=== PATIENT | male | born 1955 | race Caucasian/White ===

== ENCOUNTER 2025-01-18 14:04 | Inpatient (IN) | payer MEDICARE, SELFPAY ==
[2025-01-18 14:07] VITALS: BP 149/76; PULSE 104; RESP 18; TEMP 37.3; O2SAT 96; BMI 27.2
--- NOTE | 2025-01-18 14:30 | CT_ITS ---
PROCEDURE: BRAIN/HEAD WITHOUT CONTRAST 01/18/2025 REASON FOR EXAM: FALL/TRAUMA TECHNIQUE: Procedure Code: CTBR Modality: CT Procedure: BRAIN/HEAD WITHOUT CONTRAST Coronal and Sagittal reconstruction series were provided. One or more dose reduction techniques were used (e.g., Automated exposure control, adjustment of the mA and/or kV according to patient size, use of iterative reconstruction technique. RADIATION DOSE SUMMARY: CTDlvol: 44 mGy DLP: 796 mGycm FINDINGS: Moderate global parenchymal atrophy. Periventricular white matter hypodensity likely representing chronic microvascular ischemia. No evidence of acute hemorrhage or infarction. No extra-axial blood or fluid collections. Complete opacification of the bilateral maxillary sinuses right ethmoid and right frontal sinuses. Right mastoid effusion. The calvarial vault and skull base are intact. CT/Brain/Head without Contrast IMPRESSION: No acute intracranial abnormality. Right mastoid effusion. Right ostiomeatal complex pattern of obstruction. Reading Location: [id number]
--- NOTE | 2025-01-18 14:30 | RAD_ITS ---
PROCEDURE: HIP, UNI W/ PELVIS 2-3 VIEWS 01/18/2025 REASON FOR EXAM: PAIN/INJURY/FALL TECHNIQUE: Procedure Code: RAD Modality: DX Procedure: HIP, UNI W/ PELVIS 2-3 VIEWS Laterality: FINDINGS: Acute, comminuted left intertrochanteric fracture. Lesser trochanteric fracture fragment is mildly displaced. No evidence of dislocation. RAD/HIP, UNI W/ Pelvis 2-3 Views IMPRESSION: Intertrochanteric fracture. Reading Location: [id number]
--- NOTE | 2025-01-18 14:32 | EKG12_ITS ---
Test Reason : FALL Blood Pressure : */* mmHG Vent. Rate : 104 BPM Atrial Rate : 104 BPM P-R Int : 176 ms QRS Dur : 70 ms QT Int : 350 ms P-R-T Axes : 67 -59 -17 degrees QTcB Int : 460 ms Sinus tachycardia Left axis deviation Nonspecific T wave abnormality Abnormal ECG Confirmed by Sammy Dennis ([id number]), editor city [place] ([id number]) on 01/19/2025 9:49:31 AM Referred By: Confirmed By: Sammy Dennis
--- NOTE | 2025-01-18 14:33 | EDS_ITS ---
HPI HPI - Fall History of Present Illness Chief Complaint: Fall Informant: patient, family and EMS Narrative Narrative: 69-year-old male states he had let his dog out to urinate and was putting her back on leash when she took off and took his legs out causing him to fall onto his left hip. He laid there for couple of hours before someone became aware and called 911 to bring him to the ER. He denies any other pain or injury. He does not recall hitting his head or losing consciousness or have any other neck or back pain. He and family state that he does not see a doctor regularly, and therefore has no known medical issues or prescriptions, but family notes that he is an alcoholic and typically drinks from 8 AM-8 PM daily, and he has not had anything since last night with the current time being around 1400. He is not having any withdrawal symptoms right now, but family states this has occurred in the past. [facility] Medical History Amputation finger Home Medications ?Medication ?Instructions ?Recorded ?Last Taken ?Type NK 01/18/25 Unknown History Allergy/AdvReac Type Severity Reaction Status Date / Time latex Allergy Itching Verified 01/18/25 14:16 Penicillins Allergy Hives Verified 01/18/25 14:16 Social History (Updated 01/18/25 @ 14:[address] Shan Bianchi MD) Smoking Status: Heavy Smoker (>10/day) alcohol intake: current alcohol intake frequency: 3 or more drinks per day ROS ROS ED Constitutional Constitutional ED: Denies chills or fever(s) Eyes Eyes: Denies change in vision or diplopia ENT ENT ED: Denies rhinorrhea or sore throat Cardiovascular Cardiovascular: Denies chest pain or palpitations Respiratory/Chest Respiratory/Chest: Denies cough or dyspnea Gastrointestinal Gastrointestinal: Denies abdominal pain, diarrhea, nausea or vomiting Genitourinary Genitourinary ED: Denies dysuria or hematuria Musculoskeletal Musculoskeletal: Reports as per HPI and extremity pain; Denies back pain or neck pain Integumentary Denies abscess or rash Neurologic Neurologic: Denies headache(s), paresthesias or weakness Psychiatric Psychiatric: Denies anxiety or suicidal thoughts EXAM Physical Exam Const Vital Signs: 01/18/25 14:07 01/18/25 14:17 Temperature 99.1 F Temperature Source Axillary Pulse Rate 104 H Respiratory Rate 18 Respiratory Effort Normal Respiratory Depth Normal Respiratory Pattern Normal Blood Pressure 149/76 H Blood Pressure Mean 100 Pulse Ox 96 Oxygen Delivery Method Room Air Room Air Positive well nourished and well developed General Appearance ED: well developed and NAD HEENT Reports TM's clear and moist mucous membranes HEENT Narrative: No Loaiza sign, no raccoon eyes, no CSF otorhinorrhea, no hemotympanum. normocephalic and atraumatic Tympanic Membrane ED: Yes TM's clear Eyes PERRL and EOMs intact bilaterally Neck full ROM and supple Resp normal respiratory effort and clear to auscultation bilaterally Cardio regular rate, regular rhythm and no murmurs GI non-tender and non-distended Auscultation: normoactive bowel sounds Palpation: soft Back/Spine no CVA tenderness General Back: other FROM Extremity Extremity Narrative: Very tender left greater trochanter. Not able to move at all due to pain there in the left hip. Thighs and mild flexion, knees in flexion, left lower extremity internal rotation and the right lower extremity is along with her for comfort. Clubbing of fingernails, with black dirt beneath them all. General Extremety ED: Yes tenderness; Negative for edema or pulses abnormal General Extremity: Negative for edema or pulses abnormal Neuro oriented x3, CN's II-XII intact bilaterally and no sensory deficits noted Sensorium / Orientation: awake and alert Motor Exam: strength 5/5 throughout Psych mental status grossly normal and thought process normal Skin no rashes or lesions noted and no wounds MDM MDM MDM Narrative Medical decision making narrative: Very suspicious clinically for left hip fracture in his patient. Three-view x- ray of the left hip and pelvis confirm that showing what appears to be an intertrochanteric fracture involving avulsion of the lesser trochanter. Screening 1 view chest x-ray my interpretation shows hyperexpansion, but no acute thoracic abnormality. CT of the head was obtained in order to rule out intracranial injury, I reviewed the images and report which I agree with, negative for anything acute. Labs obtained, analgesics given, he will need to be admitted for surgical planning for this left hip fracture. He is a little hyponatremic but not severely so, slow normal saline started. Discussed with orthopedics and hospitalist. Patient did not develop withdrawal symptoms while in the hospital but I made hospital personnel aware that that could be a possibility. History & Record Review Discussion w/independent historian: EMS personnel, Patient and Family Lab Data Attestation: I reviewed the patient's lab results. Labs: Laboratory Results - last 24 hr 01/18/25 14:18 WBC 9.6 RBC 3.70 L Hgb 13.5 Hct 36.8 L MCV 99.5 H MCH 36.5 H MCHC 36.7 H RDW Std Deviation 44.0 H RDW Coeff of Robinson 12.1 Plt Count 172 MPV 10.1 Immature Gran % (Auto) 0.400 Neut % (Auto) 78.3 H Lymph % (Auto) 10.3 L [place] % (Auto) 10.7 H Eos % (Auto) 0.1 Baso % (Auto) 0.2 Absolute Neuts (auto) 7.5 Absolute Lymphs (auto) 0.98 Nucleated RBC % 0 PT 13.7 INR 1.0 APTT 28.7 Sodium 127 L Potassium 4.3 Chloride 93 L Carbon Dioxide 18.3 L Anion Gap 16 H BUN 9 Creatinine 0.65 L Estim Creat Clear Calc 94.13 Est GFR (MDRD) Non-Af 102 BUN/Creatinine Ratio 13.3 Glucose 97 Calcium 8.6 Total Bilirubin 1.14 AST 43 H ALT 34 Alkaline Phosphatase 51 Total Creatine Kinase 175 Total Protein 7.2 Albumin 3.7 Globulin 3.5 Albumin/Globulin Ratio 1.0 Radiography Diagnostic Testing: Clinical Impression(s) from Imaging Studies Brain CT 01/18/25 14:30 IMPRESSION: No acute intracranial abnormality. Right mastoid effusion. Right ostiomeatal complex pattern of obstruction. Reading Location: [address] Hip/Pelvis X-Ray 01/18/25 14:30 IMPRESSION: Intertrochanteric fracture. Reading Location: [address] Chest X-Ray 01/18/25 15:20 IMPRESSION: No Acute Findings. Reading Location: [address] Rhythm Strip Rhythm Strip: Sinus Tach Rate: 104 Ectopy: None EKG Initial EKG: Attestation: I personally reviewed and interpreted this EKG as follows: Interpretation: No Acute Injury Pattern, Sinus Tachycardia, LAFB and Non- Specific ST Changes Prior EKG tracings: not available for review Prior: No Prior Management Discussion w/another healthcare provider: Hospitalist and Mold Tooler (Jd Espinoza) Discharge Plan Dx/Rx/DC Orders Clinical Impression: Closed intertrochanteric fracture of left femur, Alcohol dependence, Fall from slip, trip, or stumble Disposition Disposition: Acute Care Hospital [facility]
[2025-01-18] MEDS: 0.9% Normal Saline (1000mL) 1,000 ML 125 ML IV ×2 (14:53→23:56)
[2025-01-18 15:08] LABS: Partial Thromboplast Time 28.7 Seconds (24.1-36.2); Prothrombin Time (Protime)PT. 13.7 SECONDS (11.7-14.9)
--- NOTE | 2025-01-18 15:20 | RAD_ITS ---
PROCEDURE: CHEST 1 VIEW 01/18/2025 REASON FOR EXAM: FALL TECHNIQUE: Frontal view of the chest. FINDINGS: The heart is normal in size. The lungs are clear. No acute osseous abnormalities. RAD/Chest 1 View IMPRESSION: No Acute Findings. Reading Location: [address]
[2025-01-18 15:27] LABS: Hematocrit 36.8 % (40-54); Hemoglobin 13.5 g/dL (13.0-16.5); Immature Granulocytes Count 0.040 X10^3/uL (0.0-0.0); Mean Corp Hgb Conc 36.7 g/dL (32-36); Mean Corpuscular Volume 99.5 fL (80-94); Mean Platelet Vol. 10.1 fl (6.2-12.0); NRBC Flagged by Analyzer 0 % (0-5); Platelet Count 172 K/mm3 (150-450); RBC Distribution Width CV 12.1 % (11.6-14.6); RBC Distribution Width SD 44.0 fl (35.1-43.9); Red Blood Count 3.70 M/mm3 (4.6-6.2); White Blood Count 9.6 K/mm3 (4.4-11.0)
[2025-01-18 15:47] LABS: CPK Total, Creatine Kinase 175 U/L (24-195)
[2025-01-18 15:50] VITALS: BP 149/76; PULSE 104; RESP 18; TEMP 37.3; O2SAT 96
[2025-01-18 15:50] LABS: AST(SGOT) 43 U/L (<=37); Alanine Aminotransfer ALT/SGPT 34 U/L (<=46); Albumin, Serum 3.7 g/dL (3.4-4.8); Alkaline Phosphatase 51 U/L (40-129); Anion Gap 16 (5-15); BUN 9 mg/dL (4-19); BUN/Creat Ratio 13.3 RATIO (10-20); Calcium,Total 8.6 mg/dL (7.6-11.0); Carbon Dioxide 18.3 mmol/L (21.0-32.0); Chloride 93 mmol/L (98-108); Estimated Creatinine Clearance 94.13 ml/min (50-250); Globulin 3.5 g/dL (2.2-4.2); Glucose 97 mg/dL (70-99); Potassium 4.3 mmol/L (3.3-5.1)
[2025-01-18 16:04] VITALS: BP 116/92
--- NOTE | 2025-01-18 16:06 | PCM.HP.STD ---
[facility] - General General Date of Admission: 01/18/25 Date of Service: 01/18/25 HPI Narrative SHAILA VALENTINO, is a 69-year-old male with alcohol use disorder presented to [facility] ED 01/18/2025 after a fall. He was letting his dog out and was putting her back on her leash when she took off and caused his legs to fall out and he fell onto his left hip. He laid there for couple hours before someone became aware. Did not hit head or lose consciousness and had no other pain. Family did note he drinks from 8 AM to 8 PM daily but has not had anything since last night. Patient denied any current withdrawal symptoms. In the ED temp 99.1, heart rate of 104 and a blood pressure 149/76, respiratory rate 18 and pulse ox 96% on room air. CBC with white count of 0.6 and hemoglobin 13.5, CMP with a sodium of 127, BUN of 9 and creatinine 0.65, CPK 175, CT of the brain no intracranial bleeding, chest x-ray no acute process, hip and pelvis x-ray demonstrated acute comminuted left intratrochanteric fracture with a lesser trochanteric fracture fragment mildly displaced. Ortho contacted and recommended medical admission with Ortho consult. Hospitalist contacted admission. Patient evaluated bedside. Reportedly last night he took the dog out and outs when he fell, laid there for couple hours before he was able to scoot himself back in the house, family helped him into bed but he refused to come to the ED, slept all night and this morning could not move because he hurts so much so he was brought to the ED. Reports he still having a lot of left hip pain, denies any other pain or anything else he hurt when he fell, does not take any medications and does not go to see doctors so unaware of any other health problems, does smoke at least 1 pack of cigarettes a day if not more and family reports he drinks every day from about 8 AM to 8 PM however he and family confirm that he drinks 7 drinks per day and they are 12 ounce 6% beers and usually does not drink more than that. Has not drink since sometime yesterday evening and denies any withdrawal symptoms at this time. When asked about p.o. intake patient only eats 1 meal a day and drinks almost no water. [facility] Medical History Amputation finger Home Medications ?Medication ?Instructions ?Recorded ?Last Taken ?Type NK 01/18/25 Unknown History Allergy/AdvReac Type Severity Reaction Status Date / Time latex Allergy Itching Verified 01/18/25 14:16 Penicillins Allergy Hives Verified 01/18/25 14:16 Social History (Updated 01/18/25 @ 14:[address] Shan Bianchi MD) Smoking Status: Heavy Smoker (>10/day) alcohol intake: current alcohol intake frequency: 3 or more drinks per day ROS ROS Narrative General: Denies fever/chills HENT: Denies headache, denies stuffy nose, denies sore throat EYES: Denies changes in vision Resp: Chronic cough that is unchanged, denies shortness of breath Cardiac: Denies chest pain GI: Denies abdominal pain, denies changes in bowel, denies nausea/vomiting : Denies changes in urination Extremity: Denies swelling MSK: Denies weakness, has left hip pain Neuro: Denies any numbness/tingling Heme: Denies any bleeding or bruising Skin: Denies rashes Psychiatric: No complaints voiced Vital Signs Vital Signs Vital Signs: 01/18/25 14:07 01/18/25 14:17 01/18/25 15:50 Temperature 99.1 F 99.1 F Temperature Source Axillary Pulse Rate 104 H 104 H Respiratory Rate 18 18 Respiratory Effort Normal Respiratory Depth Normal Respiratory Pattern Normal Blood Pressure 149/76 H 149/76 H Blood Pressure Mean 100 100 Pulse Ox 96 96 Oxygen Delivery Method Room Air Room Air Weight Weight: 88.496 kg Body Mass Index (BMI) 27.2 Physical Exam Narrative General: Alert, oriented, no apparent distress HEENT: Atraumatic, normocephalic, does have a twitch in his left eye Eyes: Anicteric, normal conjunctiva, extraocular movements grossly intact Neck: Supple Respiratory: Scattered wheezes, normal respiratory effort Cardiovascular: Regular rate and rhythm GI: Soft, nontender, nondistended Extremities: No edema Musculoskeletal: Laying on his right side, being careful not to move his left leg due to pain Neuro: No overt focal neurological deficits Skin: No rashes appreciated Psych: Cooperative Results Lab / Micro Data 01/18/25 14:18 01/18/25 14:18 Labs: Laboratory Results - last 24 hr 01/18/25 14:18: WBC 9.6, RBC 3.70 L, Hgb 13.5, Hct 36.8 L, MCV 99.5 H, MCH 36.5 H, MCHC 36.7 H, RDW Std Deviation 44.0 H, RDW Coeff of Robinson 12.1, Plt Count 172, MPV 10.1, Immature Gran % (Auto) 0.400, Neut % (Auto) 78.3 H, Lymph % (Auto) 10.3 L, [place] % (Auto) 10.7 H, Eos % (Auto) 0.1, Baso % (Auto) 0.2, Absolute Neuts (auto) 7.5, Absolute Lymphs (auto) 0.98, Nucleated RBC % 0, PT 13.7, INR 1.0, APTT 28.7, Sodium 127 L, Potassium 4.3, Chloride 93 L, Carbon Dioxide 18.3 L, Anion Gap 16 H, BUN 9, Creatinine 0.65 L, Estim Creat Clear Calc 94.13, Est GFR (MDRD) Non-Af 102, BUN/Creatinine Ratio 13.3, Glucose 97, Calcium 8.6, Total Bilirubin 1.14, AST 43 H, ALT 34, Alkaline Phosphatase 51, Total Creatine Kinase 175, Total Protein 7.2, Albumin 3.7, Globulin 3.5, Albumin/Globulin Ratio 1.0 Rhythm Strip Rhythm Strip: Sinus Tach Rate: 104 Ectopy: None Imaging Radiology Impression Brain CT 01/18/25 14:30 IMPRESSION: No acute intracranial abnormality. Right mastoid effusion. Right ostiomeatal complex pattern of obstruction. Reading Location: [id number] Hip/Pelvis X-Ray 01/18/25 14:30 IMPRESSION: Intertrochanteric fracture. Reading Location: [address] Chest X-Ray 01/18/25 15:20 IMPRESSION: No Acute Findings. Reading Location: [address] Assessment & Plan Assessment/Plan (1) Closed intertrochanteric fracture of left femur: (2) Alcohol dependence: (3) Hyponatremia: (4) Tobacco use: PLAN: Plan # Left intratrochanteric fracture -Imaging: acute comminuted left intratrochanteric fracture with a lesser trochanteric fracture fragment mildly displaced -Ortho consult -Pain control and scheduled bowel regimen -NPO at midnight in the event patient will be able to have surgery tomorrow, if not can continue diet -PT/OT -Case management and social work consults for DC planning # Alcohol abuse -Patient reportedly drinks every day from 8 AM to 8 PM however over the 12-hour period he only drinks 7 6% 12 ounce beers a day which was confirmed by family in the room -Has not drank in almost 24 hours and has no significant withdrawal symptoms at this time -Given the chronicity, consistence, and age do feel patient will have withdraw in some capacity - Do not think patient needs full high-dose phenobarb taper given the above and the concurrent pain medication use increasing risk of increased sedation/side effects but would benefit from a short-term scheduled dose, will give 32.5 every 6 hours x 24 hours and have CIWA with Ativan coverage, if patient has high scores can always consider doing full taper but again lower suspicion for that -Thiamine and folate # Hyponatremia -Unclear chronicity, sodium of 127 and is asymptomatic -Suspect this is due to patient's chronic alcohol intake with poor p.o. intake and some dehydration -Patient receiving IV fluids -Will check thyroid function -If sodium does not improve can consider further workup with serum osmolality and urine studies # Elevated anion gap - Patient with a gap of 16 and a bicarb of 18.3 - Patient does have ketones in his urine and has poor p.o. intake, suspect that this is elevated due to either starvation ketosis, alcoholic ketosis or combination of both - Will check lactic acid as well - Do not currently suspect any other underlying problems - Liberalize diet as tolerated - Receiving IV fluids #Tobacco use -Advise cessation -Nicotine replacement available if desired -i/s #DVT ppx: SCDs Amee Ramirez MD Charges/Coding Visit Charges Inpatient E&M: 80734 Init Hosp L2
[2025-01-18 16:20] LABS: Glucose, Dipstick Normal (Normal); Ketone-Dipstick 50 mg/dl (Negative); Leukocyte Esterase-Dipstick Negative /ul (Negative); Nitrite-Dipstick Negative (Negative); Occult Blood-Urine 10 /ul (Negative); Protein-Dipstick 15 mg/dl (Negative); Specific Gravity, Urine 1.020 (1.002-1.030); Urine Bilirubin Dipstick Negative (Negative)
[2025-01-18 16:21] LABS: Color, Urine Amber (Yellow); Mucous, Urine 0 SEEN /hpf (<or=2+)
[2025-01-18] MEDS: Nicotine (PBKC) 21 MG Patch TD (16:23)
[2025-01-18 16:28] LABS: Red Blood Cells-Urine 0-5 SEEN /hpf (0-5); Squamous Epithelial Cells - UA 0-5 SEEN /hpf (0-5)
--- NOTE | 2025-01-18 17:11 | PCM.HP.STD ---
HPI - General General Date of Admission: 01/18/25 HPI Narrative SHAILA VALENTINO, is a 69 M who presents with a left intertrochanteric hip fracture. The patient fell at home taking the dog out. Unable to ambulate. Here with his 2 daughters. Drinks heavily alcohol every day. Does not use ambulatory aids. No prior hip pain. [facility] Medical History Amputation finger Home Medications ?Medication ?Instructions ?Recorded ?Last Taken ?Type NK 01/18/25 Unknown History Allergy/AdvReac Type Severity Reaction Status Date / Time latex Allergy Itching Verified 01/18/25 14:16 Penicillins Allergy Hives Verified 01/18/25 14:16 Social History (Updated 01/18/25 @ 14:[address] Shan Bianchi MD) Smoking Status: Heavy Smoker (>10/day) alcohol intake: current alcohol intake frequency: 3 or more drinks per day Vital Signs Vital Signs Vital Signs: 01/18/25 14:07 01/18/25 14:17 01/18/25 15:50 Temperature 99.1 F 99.1 F Temperature Source Axillary Pulse Rate 104 H 104 H Respiratory Rate 18 18 Respiratory Effort Normal Respiratory Depth Normal Respiratory Pattern Normal Blood Pressure 149/76 H 149/76 H Blood Pressure Mean 100 100 Pulse Ox 96 96 Oxygen Delivery Method Room Air Room Air 01/18/25 16:04 Temperature Temperature Source Pulse Rate Respiratory Rate Respiratory Effort Respiratory Depth Respiratory Pattern Blood Pressure 116/92 H Blood Pressure Mean 100 Pulse Ox Oxygen Delivery Method Weight Weight: 195 lb 1.6 oz Body Mass Index (BMI) 27.2 Physical Exam Const alert, oriented x3 and no apparent distress General Appearance: cooperative Extremity Extremity Narrative: Shortened externally rotated left lower extremity. Closed. Thigh is soft. Neurovascular intact dorsiflexes and plantar flexes the foot wiggle the toes normal sensation throughout the foot good dorsalis pedis pulse. Results Lab / Micro Data 01/18/25 14:18 01/18/25 14:18 Labs: Laboratory Results - last 24 hr 01/18/25 14:18: WBC 9.6, RBC 3.70 L, Hgb 13.5, Hct 36.8 L, MCV 99.5 H, MCH 36.5 H, MCHC 36.7 H, RDW Std Deviation 44.0 H, RDW Coeff of Robinson 12.1, Plt Count 172, MPV 10.1, Immature Gran % (Auto) 0.400, Neut % (Auto) 78.3 H, Lymph % (Auto) 10.3 L, [place] % (Auto) 10.7 H, Eos % (Auto) 0.1, Baso % (Auto) 0.2, Absolute Neuts (auto) 7.5, Absolute Lymphs (auto) 0.98, Nucleated RBC % 0, PT 13.7, INR 1.0, APTT 28.7, Sodium 127 L, Potassium 4.3, Chloride 93 L, Carbon Dioxide 18.3 L, Anion Gap 16 H, BUN 9, Creatinine 0.65 L, Estim Creat Clear Calc 94.13, Est GFR (MDRD) Non-Af 102, BUN/Creatinine Ratio 13.3, Glucose 97, Calcium 8.6, Total Bilirubin 1.14, AST 43 H, ALT 34, Alkaline Phosphatase 51, Total Creatine Kinase 175, Total Protein 7.2, Albumin 3.7, Globulin 3.5, Albumin/Globulin Ratio 1.0 01/18/25 16:10: Lactic Acid 1.6 01/18/25 16:12: Urine Color Lynne, Urine Clarity Clear, Urine pH 6.0, Ur Specific [place] 1.020, Urine Protein 15 H, Urine Glucose (UA) Normal, Urine Ketones 50 H, Urine Occult Blood 10 H, Urine Nitrite Negative, Urine Bilirubin Negative, Urine Urobilinogen 1 H, Ur Leukocyte Esterase Negative, Urine RBC 0-5 SEEN, Urine WBC 0 SEEN, Ur Squamous Epith Cells 0-5 SEEN, Urine Bacteria 2+, Urine Mucus 0 SEEN Rhythm Strip Rhythm Strip: Sinus Tach Rate: 104 Ectopy: None Imaging Radiology Impression Brain CT 01/18/25 14:30 IMPRESSION: No acute intracranial abnormality. Right mastoid effusion. Right ostiomeatal complex pattern of obstruction. Reading Location: [address] Hip/Pelvis X-Ray 01/18/25 14:30 IMPRESSION: Intertrochanteric fracture. Reading Location: [address] Chest X-Ray 01/18/25 15:20 IMPRESSION: No Acute Findings. Reading Location: [address] I independently reviewed the imaging. Concur with radiologist report. Three-part intertrochanteric hip fracture with a lateral wall intact Assessment & Plan Assessment/Plan (1) Closed intertrochanteric fracture of left femur: PLAN: 69-year-old man with a left hip intertrochanteric hip fracture. I explained to the patient as well as the 2 daughters the diagnosis prognosis different treatment options including nonoperative management which is typically not indicated. Surgery is recommended here to stabilize the femur fracture. This would be with an intramedullary josh. I marked the left hip. Explained the pros and cons risks benefits of nonoperative versus surgical indications. Patient wished to go ahead with surgery in the form of left hip open reduction internal fixation. Will be admitted under the hospitalist service made n.p.o. at midnight to try to plan for the surgery within the next 48 hours possibly tomorrow or the next day. Nonweightbearing bedrest for now. Specific surgical risks include but not limited to infection pain stiffness bleeding delayed or nonunion especially due to his smoking habit and alcoholic encouraged him to quit or cut back as well as VTE and other risks such as pain stiffness bleeding damage to other structures and fracture. He understood wished to go ahead signed consent form as well as possible need for blood products. They understood no further questions or concerns. Pros and cons risks and benefits were discussed with the patient including but not limited to infection, pain, stiffness, bleeding, damage to surrounding structures, neurovascular injury, recurrence or retear, failure or wear of hardware or fixation, instability, fracture, deep vein thrombosis and pulmonary embolism, anesthetic risks, , patient dissatisfaction, need for further surgery and other risks. Patient understood and wished to proceed with surgery, and signed the informed consent documentation.
[2025-01-18 17:53] VITALS: BP 140/61; PULSE 93; RESP 16; TEMP 36.6; O2SAT 94
[2025-01-18 17:56] VITALS: BMI 22.6
[2025-01-18 18:12] VITALS: RESP 16
[2025-01-18 20:44] VITALS: BP 112/65; PULSE 98; RESP 20; TEMP 36.5; O2SAT 96
[2025-01-18] MEDS: Senna/Docusate Sodium 1 Tablet 2 TABLET PO (20:48)
[2025-01-19] VITALS (15 sets, daily range): BP systolic 111–141; BP diastolic 57–85; PULSE 78–107; RESP 16–20; TEMP 35.8–36.9; O2SAT 92–100; BMI 22.6
[2025-01-19 07:04] LABS: Hematocrit 32.0 % (40-54); Hemoglobin 11.4 g/dL (13.0-16.5); Immature Granulocytes Count 0.040 X10^3/uL (0.0-0.0); Mean Corp Hgb Conc 35.6 g/dL (32-36); Mean Corpuscular Volume 101.3 fL (80-94); Mean Platelet Vol. 9.0 fl (6.2-12.0); NRBC Flagged by Analyzer 0 % (0-5); Platelet Count 164 K/mm3 (150-450); RBC Distribution Width CV 12.2 % (11.6-14.6); RBC Distribution Width SD 45.4 fl (35.1-43.9); Red Blood Count 3.16 M/mm3 (4.6-6.2); White Blood Count 7.7 K/mm3 (4.4-11.0)
[2025-01-19] MEDS: 0.9% Normal Saline (1000mL) 1,000 ML 125 ML IV ×2 (07:16→15:58)
[2025-01-19 07:38] LABS: AST(SGOT) 32 U/L (<=37); Alanine Aminotransfer ALT/SGPT 24 U/L (<=46); Albumin, Serum 2.9 g/dL (3.4-4.8); Alkaline Phosphatase 39 U/L (40-129); Anion Gap 10 (5-15); BUN 11 mg/dL (4-19); BUN/Creat Ratio 16.7 RATIO (10-20); Bilirubin, Direct 0.21 mg/dL (0.00-0.30); Calcium,Total 7.9 mg/dL (7.6-11.0); Carbon Dioxide 19.8 mmol/L (21.0-32.0); Chloride 100 mmol/L (98-108); Estimated Creatinine Clearance 91.88 ml/min (50-250); Globulin 3.2 g/dL (2.2-4.2); Glucose 87 mg/dL (70-99); Potassium 3.8 mmol/L (3.3-5.1)
[2025-01-19 08:09] LABS: Partial Thromboplast Time 30.4 Seconds (24.1-36.2); Prothrombin Time (Protime)PT. 14.0 SECONDS (11.7-14.9)
[2025-01-19] MEDS: Nicotine (PBKC) 21 MG Patch TD (10:19)
--- NOTE | 2025-01-19 11:35 | PN.HOSP_ITS ---
Objective Data Objective Data Vital Signs: Vital Signs Temp Pulse Resp BP Pulse Ox O2 Del Method 98.3 F 83 18 111/63 94 Room Air 01/19/25 08:07 01/19/25 08:07 01/19/25 08:07 01/19/25 08:07 01/19/25 08:07 01/19/25 08:09 Oxygen Delivery Method Room Air Weight: 162 lb 0.636 oz Body Mass Index (BMI) 22.6 Intake & Output: Intake and Output for Last 24 Hours 01/17/25 01/18/25 01/19/25 23:59 23:59 23:59 Intake Total 1000 / 1200 1116.67 / 1116.67 Output Total 725 / 725 Balance 1000 / 850 391.67 / 391.67 Lab / Micro Data 01/19/25 06:25 01/19/25 06:25 Labs: Laboratory Results - last 24 hr 01/18/25 14:18: WBC 9.6, RBC 3.70 L, Hgb 13.5, Hct 36.8 L, MCV 99.5 H, MCH 36.5 H, MCHC 36.7 H, RDW Std Deviation 44.0 H, RDW Coeff of Robinson 12.1, Plt Count 172, MPV 10.1, Immature Gran % (Auto) 0.400, Neut % (Auto) 78.3 H, Lymph % (Auto) 10.3 L, [place] % (Auto) 10.7 H, Eos % (Auto) 0.1, Baso % (Auto) 0.2, Absolute Neuts (auto) 7.5, Absolute Lymphs (auto) 0.98, Nucleated RBC % 0, PT 13.7, INR 1.0, APTT 28.7, Sodium 127 L, Potassium 4.3, Chloride 93 L, Carbon Dioxide 18.3 L, Anion Gap 16 H, BUN 9, Creatinine 0.65 L, Estim Creat Clear Calc 94.13, Est GFR (MDRD) Non-Af 102, BUN/Creatinine Ratio 13.3, Glucose 97, Calcium 8.6, Total Bilirubin 1.14, AST 43 H, ALT 34, Alkaline Phosphatase 51, Total Creatine Kinase 175, Total Protein 7.2, Albumin 3.7, Globulin 3.5, Albumin/Globulin Ratio 1.0 01/18/25 16:10: Lactic Acid 1.6 01/18/25 16:12: Urine Color Lynne, Urine Clarity Clear, Urine pH 6.0, Ur Specific [place] 1.020, Urine Protein 15 H, Urine Glucose (UA) Normal, Urine Ketones 50 H, Urine Occult Blood 10 H, Urine Nitrite Negative, Urine Bilirubin Negative, Urine Urobilinogen 1 H, Ur Leukocyte Esterase Negative, Urine RBC 0-5 SEEN, Urine WBC 0 SEEN, Ur Squamous Epith Cells 0-5 SEEN, Urine Bacteria 2+, Urine Mucus 0 SEEN 01/19/25 06:25: WBC 7.7, RBC 3.16 L, Hgb 11.4 L, Hct 32.0 L, MCV 101.3 H, MCH 36.1 H, MCHC 35.6, RDW Std Deviation 45.4 H, RDW Coeff of Robinson 12.2, Plt Count 164, MPV 9.0, Immature Gran % (Auto) 0.500, Neut % (Auto) 62.9, Lymph % (Auto) 22.7, [place] % (Auto) 12.5 H, Eos % (Auto) 0.9, Baso % (Auto) 0.5, Absolute Neuts (auto) 4.8, Absolute Lymphs (auto) 1.74, Nucleated RBC % 0, PT 14.0, INR 1.1, APTT 30.4, Sodium 130 L, Potassium 3.8, Chloride 100, Carbon Dioxide 19.8 L, Anion Gap 10, BUN 11, Creatinine 0.64 L, Estim Creat Clear Calc 91.88, Est GFR (MDRD) Non-Af 103, BUN/Creatinine Ratio 16.7, Glucose 87, Calcium 7.9, Total Bilirubin 0.69, Direct Bilirubin 0.21, AST 32, ALT 24, Alkaline Phosphatase 39 L , Total Protein 6.1, Albumin 2.9 L, Globulin 3.2, Albumin/Globulin Ratio 0.9, T SH 5.600 H, Blood Type A POSITIVE, Antibody Screen NEGATIVE Radiography Diagnostic Testing: Radiology Impression Brain CT 01/18/25 14:30 IMPRESSION: No acute intracranial abnormality. Right mastoid effusion. Right ostiomeatal complex pattern of obstruction. Reading Location: [address] Hip/Pelvis X-Ray 01/18/25 14:30 IMPRESSION: Intertrochanteric fracture. Reading Location: [address] Chest X-Ray 01/18/25 15:20 IMPRESSION: No Acute Findings. Reading Location: [address] Rhythm Strip Rhythm Strip: Sinus Tach Rate: 104 Ectopy: None Physical Exam Narrative Seen and examined. Patient fell down on left side after the dog pulled him. He was walking the dog. Patient has bruises on the left upper extremity. Denies hitting head or loss of consciousness. Patient drinks 6-7 beers every day Physical exam General: Alert, Oriented x3, Cooperative HEENT: Atraumatic, PERRLA, EOMI, Normocephalic. Oral: No Gingival or Mucosal Lesions/ Ulcerations Neck: Supple, No JVD, Negative Carotid Bruits Chest wall/Lungs: Air entry diminished in bilateral lung bases. No crepitation/rhonchi Cardiovascular: Regular rate and rhythm, Normal S1,S2, No M/G/R Abdomen: Bowel Sounds Present, Soft, Non Tender, Non-Distended : No dysuria. No renal angle tenderness. No suprapubic tenderness. Extremities: No edema, Capillary Refill Less than 3 Seconds Skin: Multiple bruises in the left upper extremity. Chronic scarring also on the left upper extremity. Amputation of the finger. Musculoskeletal: Tenderness present over the left hip joint mainly and greater trochanter. ROM restricted and not attempted Neurological: Cranial nerves II-XII grossly intact, DTR 2+/4. No acute focal neurological deficit. Psych/Mental Status: Flat affect Assessment & Plan Assessment/Plan (1) Closed intertrochanteric fracture of left femur: (2) Alcohol dependence: (3) Hyponatremia: (4) Tobacco use: PLAN: Plan 69-year-old gentleman with history of chronic alcohol use is being admitted for management of fall resulting into left hip fracture # Acute debility due to left intratrochanteric fracture from fall -Imaging: acute comminuted left intratrochanteric fracture with a lesser trochanteric fracture fragment mildly displaced -Ortho consult -Pain control and scheduled bowel regimen -NPO at midnight in the event patient will be able to have surgery tomorrow, if not can continue diet -PT/OT -Case management and social work consults for DC planning Perioperative risk evaluation: Twelve-lead EKG reviewed. Sinus tachycardia at 104 beats minute. LAD. # Chronic alcohol use dependence and tolerance -Patient reportedly drinks every day from 8 AM to 8 PM however over the 12-hour period he only drinks 7 bottles of 6% 12 ounce beers a day which was confirmed by family in the room -Has not drank in almost 24 hours and has no significant withdrawal symptoms at this time Patient has developed tolerance to the above alcohol and is not withdrawing. Continue short-term scheduled dose, continue 32.5 every 6 hours x 24 hours and have CIWA with Ativan coverage, if patient has high scores can always consider doing full taper but again lower suspicion for that -Thiamine and folate # Hyponatremia -Unclear chronicity, sodium of 127 and is asymptomatic -Suspect this is due to patient's chronic alcohol intake with poor p.o. intake and some dehydration -Patient receiving IV fluids TSH 5.6, elevated 01/19: Serum sodium 130. K3.8. Bicarb 19.8. Anion gap 10. # Elevated anion gap - Patient with a gap of 16 and a bicarb of 18.3 - Patient does have ketones in his urine and has poor p.o. intake, suspect that this is elevated due to either starvation ketosis, alcoholic ketosis or combination of both Lactic acid 1.6. - Do not currently suspect any other underlying problems - Liberalize diet as tolerated - Receiving IV fluids #Tobacco use -Advise cessation -Nicotine replacement available if desired -i/s #DVT ppx: SCDs Laboratory Results 01/18/25 14:18: WBC 9.6, RBC 3.70 L, Hgb 13.5, Hct 36.8 L, MCV 99.5 H, MCH 36.5 H, MCHC 36.7 H, RDW Std Deviation 44.0 H, RDW Coeff of Robinson 12.1, Plt Count 172, MPV 10.1, Immature Gran % (Auto) 0.400, Neut % (Auto) 78.3 H, Lymph % (Auto) 10.3 L, [place] % (Auto) 10.7 H, Eos % (Auto) 0.1, Baso % (Auto) 0.2, Absolute Neuts (auto) 7.5, Absolute Lymphs (auto) 0.98, Nucleated RBC % 0, PT 13.7, INR 1.0, APTT 28.7, Sodium 127 L, Potassium 4.3, Chloride 93 L, Carbon Dioxide 18.3 L, Anion Gap 16 H, BUN 9, Creatinine 0.65 L, Estim Creat Clear Calc 94.13, Est GFR (MDRD) Non-Af 102, BUN/Creatinine Ratio 13.3, Glucose 97, Calcium 8.6, Total Bilirubin 1.14, AST 43 H, ALT 34, Alkaline Phosphatase 51, Total Creatine Kinase 175, Total Protein 7.2, Albumin 3.7, Globulin 3.5, Albumin/Globulin Ratio 1.0 01/18/25 16:10: Lactic Acid 1.6 01/18/25 16:12: Urine Color Lynne, Urine Clarity Clear, Urine pH 6.0, Ur Specific [place] 1.020, Urine Protein 15 H, Urine Glucose (UA) Normal, Urine Ketones 50 H, Urine Occult Blood 10 H, Urine Nitrite Negative, Urine Bilirubin Negative, Urine Urobilinogen 1 H, Ur Leukocyte Esterase Negative, Urine RBC 0-5 SEEN, Urine WBC 0 SEEN, Ur Squamous Epith Cells 0-5 SEEN, Urine Bacteria 2+, Urine Mucus 0 SEEN 01/19/25 06:25: WBC 7.7, RBC 3.16 L, Hgb 11.4 L, Hct 32.0 L, MCV 101.3 H, MCH 36.1 H, MCHC 35.6, RDW Std Deviation 45.4 H, RDW Coeff of [place] 12.2, Plt Count 164, MPV 9.0, Immature Gran % (Auto) 0.500, Neut % (Auto) 62.9, Lymph % (Auto) 22.7, [place] % (Auto) 12.5 H, Eos % (Auto) 0.9, Baso % (Auto) 0.5, Absolute Neuts (auto) 4.8, Absolute Lymphs (auto) 1.74, Nucleated RBC % 0, PT 14.0, INR 1.1, APTT 30.4, Sodium 130 L, Potassium 3.8, Chloride 100, Carbon Dioxide 19.8 L, Anion Gap 10, BUN 11, Creatinine 0.64 L, Estim Creat Clear Calc 91.88, Est GFR (MDRD) Non-Af 103, BUN/Creatinine Ratio 16.7, Glucose 87, Calcium 7.9, Total Bilirubin 0.69, Direct Bilirubin 0.21, AST 32, ALT 24, Alkaline Phosphatase 39 L, Total Protein 6.1, Albumin 2.9 L, Globulin 3.2, Albumin/Globulin Ratio 0.9, TSH 5.600 H, Blood Type A POSITIVE, Antibody Screen NEGATIVE Charges/Coding Visit Charges Inpatient E&M: 72463 Subs Hosp L2
--- NOTE | 2025-01-19 12:16 | PCM.PRE.AN2 ---
ASA Classification* ASA Classification ASA Classification: 3 (Smoker and alcoholic deconditioned) Assessment & Plan Anesthesia* Anesthesia Assessment Anesthesia Assessment: Discussed sedation and/or anesthesia options, risks, benefits, and alternatives with patient/parents/legal guardian/POA. Questions invited. The patient/parents/legal guardian/POA seems to understand and agrees to proceed with anesthesia plan. Reviewed the physical assessment, medical history, allergy history and patient home medications list prior to surgery/procedure/anesthetic and documented any changes. Performed airway and anesthesia risk assessments. Anesthesia Type Anesthesia Type: General History Source History Obtained from:: Patient and Chart Anesthesia Focused Assessment* Temperature: 98.3 F Pulse Rate: 83 Blood Pressure: 131/73 Respiratory Rate: 17 Pulse Ox: 94 Oxygen Delivery Method: Room Air Airway Assessment Mouth opens: >3 cm Mallampati Score: II Teeth Condition: Chipped/Broken (Poor dentition multiple missing teeth) Neck Range of motion (ROM): Limited ROM Labs Anesthesia Preop lab: CBC WBC 7.7 K/mm3 (4.4-11.0) 01/19/25 06:01/19/25 RBC 3.16 M/mm3 (4.6-6.2) L 01/19/25 06:25 01/19/25 Hgb 11.4 g/dL (13.0-16.5) L 01/19/25 06:25 01/19/25 Hct 32.0 % (40-54) L 01/19/25 06:25 01/19/25 Plt Count 164 K/mm3 (150-450) 01/19/25 06:25 01/19/25 CHEMISTRY Potassium 3.8 mmol/L (3.3-5.1) 01/19/25 06:25 01/19/25 Sodium 130 mmol/L (133-145) L 01/19/25 06:25 01/19/25 BUN 11 mg/dL (4-19) 01/19/25 06:25 01/19/25 Creatinine 0.64 mg/dL (0.70-1.20) L 01/19/25 06:25 01/19/25 Glucose 87 mg/dL (70-99) 01/19/25 06:25 01/19/25 TSH 5.600 uIU/mL (0.300-4.200) H 01/19/25 06:25 01/19/25 COAG PT 14.0 SECONDS (11.7-14.9) 01/19/25 06:25 01/19/25 Pre-Assessment Diagnosis/Proposed Procedure Planned Operative Procedure(s): Left hip open reduction internal fixation Anesthesia History 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 When Was Last Pacemaker Check QUESTION #4 FULL TEXT: You/Your Family Experience fever (hyperthermia) with Anesthesia Last Oral Intake Last Oral intake: Last Oral Intake NPO since 06:00 01/19/25 11:36 Meds taken in AM with sips of Yes 01/19/25 11:36 water? 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 Female HX of Motion Sickness HX of N/V After Surgery Non-Smoker Duration of Surgery greater than 60 minutes Number of Risk Factors PONV Score Height & Weight Height & Weight: Anesthesia: Height & Weight Height 5 ft 11 in 01/19/25 11:36 Weight: 73.5 kg 01/19/25 11:36 Body Mass Index (BMI) 22.6 01/19/25 11:36 Respiratory Assessment Respiratory Assessment - men's swim coach: Respiratory Tract Infection Hx - men's swim coach Hx Respiratory Tract Infection No 01/19/25 11:42 STOP Sleep Apnea STOP Sleep Apnea - men's swim coach: STOP Sleep Apnea - men's swim coach Hx Hypertension No 01/18/25 17:56 Hx Sleep Apnea No 01/18/25 17:56 CPAP BIPAP Do you snore loudly (louder No 01/18/25 17:56 than talking or can be heard Do you often feel tired/ No 01/18/25 17:56 fatigued/ sleepy during daytime? Has anyone observed you stop No 01/18/25 17:56 breathing during sleep? STOP Results Negative 01/18/25 17:56 QUESTION #5 FULL TEXT : Do you snore loudly (louder than talking or can be heard through closed doors)? 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 Specify any problems Hx of Preganancy in last 3 N/A 01/18/25 17:56 Months Nurse Filling Out Transfusion JDIAL 01/18/25 17:56 & Questions: Date: 01/18/25 01/18/25 17:56 Time: 18:02 01/18/25 17:56 Patient unable to answer at this time (ie. confused, unrespo /Reproduction History /Reproductive History - men's swim coach: /Reproductive Hx- men's swim coach Hx Now Gestational Age (in weeks): EDC: Hx Hx Para Hx Section SAB Active Medications Active Medications: Current Medications Generic Name Dose Route Start Last Admin Trade Name Freq PRN Reason Stop Dose Admin Acetaminophen 1,000 mg 01/18/25 22:00 01/19/25 05:57 Acetaminophen 500 Mg Tablet PO 1,000 mg Q8 KIERRA Administration Albuterol Sulfate 2.5 mg 01/18/25 17:43 Albuterol 2.5 Mg/3 Ml Vial.Neb. INHALATION Q2H PRN PRN SOB &/OR WHEEZING Dicyclomine HCl 20 mg 01/18/25 17:43 Dicyclomine 10 Mg Capsule PO Q6H PRN PRN abdominal discomfort Folic Acid 1 mg 01/19/25 08:00 01/19/25 08:13 Folic Acid 1 Mg Tablet PO Not Given BREAKFAST KIERRA Gabapentin 100 mg 01/18/25 17:43 Gabapentin 100 Mg Capsule PO Q8H PRN PRN moderate to severe anxiety Sodium Chloride 1,000 mls @ 125 mls/hr 01/18/25 14:30 01/19/25 07:16 IV 125 mls/hr .Q8H KIERRA Administration Cefazolin Sodium 2 gm/ Sodium 110 mls @ 200 mls/hr 01/19/25 12:09 Chloride IV 01/19/25 12:41 INTRAOP ONE Ketorolac Tromethamine 15 mg 01/18/25 17:43 Ketorolac 15 Mg/Ml Vial IV 01/23/25 17:43 Q6H PRN PRN Pain Score 1-10 Loperamide HCl 2 mg 01/18/25 17:43 Loperamide 2 Mg Capsule PO Q4H PRN PRN DIARRHEA/LOOSE STOOLS Lorazepam 0.5 mg 01/18/25 17:43 Lorazepam 0.5 Mg Tablet PO UD PRN CIWA score >/=12 Protocol Melatonin 10 mg 01/18/25 17:43 Melatonin 10 Mg Tablet PO QHS PRN PRN INSOMNIA Morphine Sulfate 2 - 4 mg 01/18/25 17:43 Morphine 2 Mg/Ml Syringe IV Q3H PRN PRN Pain Score 6-10 Nicotine 21 mg 01/19/25 10:00 01/19/25 10:19 Nicotine (Pbkc) 21 Mg Patch TD 21 mg DAILY KIERRA Administration Ondansetron HCl 4 mg 01/18/25 17:43 Ondansetron 4 Mg/2 Ml Vial IV Q8H PRN PRN NAUSEA/VOMITING Ondansetron HCl 8 mg 01/18/25 17:43 Ondansetron 8 Mg Tablet PO Q8H PRN PRN NAUSEA Oxycodone HCl 5 mg 01/18/25 17:43 01/18/25 23:55 Oxycodone 5 Mg Tablet PO 5 mg Q4H PRN PRN Administration Pain Score 4-10 Phenobarbital 32.4 mg 01/18/25 18:00 01/19/25 05:57 Phenobarbital 16.2 Mg Tablet PO 01/19/25 18:01 32.4 mg Q6H KIERRA Administration Senna/Docusate Sodium 2 tablet 01/18/25 22:00 01/19/25 10:19 Senna/Docusate Sodium 1 Tablet PO Not Given BID KIERRA Sodium Chloride 10 - 40 ml 01/18/25 18:33 0.9% Saline Lock 10 Ml Syringe IV UD PRN SALINE FLUSH Thiamine HCl 100 mg 01/19/25 08:00 01/19/25 08:13 Thiamine Hydrochloride 100 Mg Tablet PO Not Given DAILYCM KIERRA Trazodone HCl 50 mg 01/18/25 17:43 Trazodone 50 Mg Tablet PO QHS PRN PRN INSOMNIA PFSH Medical History Amputation finger Home Medications ?Medication ?Instructions ?Recorded ?Last Taken ?Type NK 01/18/25 Unknown History Allergy/AdvReac Type Severity Reaction Status Date / Time latex Allergy Itching Verified 01/18/25 14:16 Penicillins Allergy Hives Verified 01/18/25 14:16 Social History Smoking Status: Heavy Smoker (>10/day) alcohol intake: current alcohol intake frequency: 3 or more drinks per day Review of Systems (Anesthesia) ROS Narrative System reviewed and no additional complaints, except as documented.
--- NOTE | 2025-01-19 12:31 | PN.ORTHO_ITS ---
Subjective Subjective PAD 1 L hip fracture. fine overnight. no concerns. Objective Data Objective Data Vital Signs: Vital Signs Temp Pulse Resp BP Pulse Ox O2 Del Method 98.3 F 83 17 131/73 H 94 Room Air 01/19/25 12:18 01/19/25 12:18 01/19/25 12:18 01/19/25 12:18 01/19/25 12:18 01/19/25 12:18 Oxygen Delivery Method Room Air Weight: 162 lb 0.636 oz Body Mass Index (BMI) 22.6 Intake & Output: Intake and Output for Last 24 Hours 01/17/25 01/18/25 01/19/25 23:59 23:59 23:59 Intake Total 1000 / 1200 1116.67 / 1116.67 Output Total 725 / 725 Balance 1000 / 850 391.67 / 391.67 Lab / Micro Data 01/19/25 06:25 01/19/25 06:25 Labs: Laboratory Results - last 24 hr 01/18/25 14:18: WBC 9.6, RBC 3.70 L, Hgb 13.5, Hct 36.8 L, MCV 99.5 H, MCH 36.5 H, MCHC 36.7 H, RDW Std Deviation 44.0 H, RDW Coeff of [place] 12.1, Plt Count 172, MPV 10.1, Immature Gran % (Auto) 0.400, Neut % (Auto) 78.3 H, Lymph % (Auto) 10.3 L, [place] % (Auto) 10.7 H, Eos % (Auto) 0.1, Baso % (Auto) 0.2, Absolute Neuts (auto) 7.5, Absolute Lymphs (auto) 0.98, Nucleated RBC % 0, PT 13.7, INR 1.0, APTT 28.7, Sodium 127 L, Potassium 4.3, Chloride 93 L, Carbon Dioxide 18.3 L, Anion Gap 16 H, BUN 9, Creatinine 0.65 L, Estim Creat Clear Calc 94.13, Est GFR (MDRD) Non-Af 102, BUN/Creatinine Ratio 13.3, Glucose 97, Calcium 8.6, Total Bilirubin 1.14, AST 43 H, ALT 34, Alkaline Phosphatase 51, Total Creatine Kinase 175, Total Protein 7.2, Albumin 3.7, Globulin 3.5, Albumin/Globulin Ratio 1.0 01/18/25 16:10: Lactic Acid 1.6 01/18/25 16:12: Urine Color Lynne, Urine Clarity Clear, Urine pH 6.0, Ur Specific [place] 1.020, Urine Protein 15 H, Urine Glucose (UA) Normal, Urine Ketones 50 H, Urine Occult Blood 10 H, Urine Nitrite Negative, Urine Bilirubin Negative, Urine Urobilinogen 1 H, Ur Leukocyte Esterase Negative, Urine RBC 0-5 SEEN, Urine WBC 0 SEEN, Ur Squamous Epith Cells 0-5 SEEN, Urine Bacteria 2+, Urine Mucus 0 SEEN 01/19/25 06:25: WBC 7.7, RBC 3.16 L, Hgb 11.4 L, Hct 32.0 L, MCV 101.3 H, MCH 36.1 H, MCHC 35.6, RDW Std Deviation 45.4 H, RDW Coeff of [place] 12.2, Plt Count 164, MPV 9.0, Immature Gran % (Auto) 0.500, Neut % (Auto) 62.9, Lymph % (Auto) 22.7, [place] % (Auto) 12.5 H, Eos % (Auto) 0.9, Baso % (Auto) 0.5, Absolute Neuts (auto) 4.8, Absolute Lymphs (auto) 1.74, Nucleated RBC % 0, PT 14.0, INR 1.1, APTT 30.4, Sodium 130 L, Potassium 3.8, Chloride 100, Carbon Dioxide 19.8 L, Anion Gap 10, BUN 11, Creatinine 0.64 L, Estim Creat Clear Calc 91.88, Est GFR (MDRD) Non-Af 103, BUN/Creatinine Ratio 16.7, Glucose 87, Calcium 7.9, Total Bilirubin 0.69, Direct Bilirubin 0.21, AST 32, ALT 24, Alkaline Phosphatase 39 L , Total Protein 6.1, Albumin 2.9 L, Globulin 3.2, Albumin/Globulin Ratio 0.9, T SH 5.600 H, Blood Type A POSITIVE, Antibody Screen NEGATIVE Radiography Diagnostic Testing: Radiology Impression Brain CT 01/18/25 14:30 IMPRESSION: No acute intracranial abnormality. Right mastoid effusion. Right ostiomeatal complex pattern of obstruction. Reading Location: [id number] Hip/Pelvis X-Ray 01/18/25 14:30 IMPRESSION: Intertrochanteric fracture. Reading Location: [address] Chest X-Ray 01/18/25 15:20 IMPRESSION: No Acute Findings. Reading Location: [address] Rhythm Strip Rhythm Strip: Sinus Tach Rate: 104 Ectopy: None Physical Exam Const alert and no apparent distress General Appearance: cooperative Assessment & Plan Assessment/Plan (1) Closed intertrochanteric fracture of left femur: PLAN: 69 yr M with L IT hip fracture. Plan for IM josh. No concerns. OK to proceed.
--- NOTE | 2025-01-19 12:38 | NURSING ---
brought down to surgery via bed at 1200pm today.
[2025-01-19] MEDS: Midazolam 2 MG/2 ML Syringe IV (12:53)
[2025-01-19] MEDS: Lidocaine 1% (5 ml sdv) 5 ML Vial IV (12:58)
[2025-01-19] MEDS: Cefazolin 1 GM/5 ML Vial 2 GM IV (13:05)
--- NOTE | 2025-01-19 13:05 | RAD_ITS ---
PROCEDURE: HIP MIN 2 VIEWS (PORTABLE); O.R. FLUORO FOR C-ARM 01/19/2025 REASON FOR EXAM: LEFT HIP FX, fluoroscopy and intraoperative fixation TECHNIQUE: Procedure Code: RADH_P; RADORFL_C_ARM Modality: DX Procedure: HIP MIN 2 VIEWS (PORTABLE); O.R. FLUORO FOR C-ARM Laterality: Left. Fluoroscopy time: 171 seconds. Dose: 32.21 mGy. COMPARISON: Left hip and pelvis series of 01/18/2025. RAD/Hip Min 2 Views (Portable) IMPRESSION: Intraoperative fluoroscopy was performed for fracture fixation of the proximal left femoral fracture site, including left femoral intramedullary nail with proximal distal interlocking screws. 5 fluoroscopic i mages are presented. Reading Location: [place] [id number]
--- NOTE | 2025-01-19 13:05 | RAD_ITS ---
PROCEDURE: HIP MIN 2 VIEWS (PORTABLE); O.R. FLUORO FOR C-ARM 01/19/2025 REASON FOR EXAM: LEFT HIP FX, fluoroscopy and intraoperative fixation TECHNIQUE: Procedure Code: RADH_P; RADORFL_C_ARM Modality: DX Procedure: HIP MIN 2 VIEWS (PORTABLE); O.R. FLUORO FOR C-ARM Laterality: Left. Fluoroscopy time: 171 seconds. Dose: 32.21 mGy. COMPARISON: Left hip and pelvis series of 01/18/2025. RAD/O.R. Fluoro for C-Arm IMPRESSION: Intraoperative fluoroscopy was performed for fracture fixation of the proximal left femoral fracture site, including left femoral intramedullary nail with proximal distal interlocking screws. 5 fluoroscopic i mages are presented. Reading Location: [place] [id number]
[2025-01-19] MEDS: Lactated Ringers 2,000 ML 2000 ML IV (13:54)
[2025-01-19] MEDS: fentaNYL 100 MCG/2 ML Ampul 200 MCG IV (14:03)
--- NOTE | 2025-01-19 14:25 | OP.PCM_ITS ---
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 Product Tester: castillo Tasks completed by first calender worker: Retracting Additional assistant librarian?: No Type of Anesthesia: General and Local RN Documented Start/Stop Times: Operation Date: 01/19/25 13:00 Case Time Into Pre-Op 01/19/25 12:02 Out of Pre-Op 01/19/25 12:48 Anesthesia Start 01/19/25 12:53 Into Room 01/19/25 12:53 Procedure Start 01/19/25 13:18 Procedure End 01/19/25 14:21 Procedure Start Time: 13:18 Procedure Stop Time: 14:21 Select all DRAINS/GRAFTS/IMPLANTS that apply: Implanted device Implanted device details: Synthes TFN?a 380 mm length and 130 degree neck shaft angle with a 105 helical blade Estimated Blood Loss: 100 Specimen collected: No Description of surgery: Patient brought to the operating room theater. Placed supine on the traction fracture table. All bony prominences padded. SCD on the nonoperative leg. General anesthesia induced. 2 g IV Ancef administered prior to the start of procedure. Nonoperative leg attached to the middle post of the bed using a pillow and eggcrate pad at the peroneal nerve and Coban wrap. Operative leg in traction boot, padded, with traction and internal rotation placed to achieve appropriate reduction. Lower extremity prepped and draped in the usual sterile fashion with chlorhexidine-based prep solution allowing over 3 minutes drying time prior to draping. Draping performed with the Ioban shower curtain style drape. Preoperative timeout performed to confirm the site patient and the surgery. Began by confirming the reduction with AP and lateral radiographs. There is a four-part fracture with comminuted greater trochanter fracture and multiple fragments and comminution. Therefore I elected to place a long intramedullary nail. Made a small stab incision 3 fingerbreadths proximal to the level of the greater trochanter. I used a 3.2 mm partially threaded guide tip wire. This was a little bit of a posterior starting point so I made another stab incision anterior to this and passed the 3.2mm guidewire central of the greater t rochanter aiming towards the lesser trochanter and then down the femoral shaft on the lateral radiograph. Incisded over the wire. I used the entry reamer and the soft tissue protector. I then used the ball-tipped guidewire down to the center of the distal femur just at the superior pole of the patella. This measured 390 mm so I selected a 380 mm long nail and the neck-shaft angle appeared to be 130 degrees. I sequentially reamed up to a size 13.5 mm with good chatter in the diaphysis, and then placed a 12 mm in diameter nail 380 mm long with 130 degree neck shaft angle down to an appropriate depth. Once I placed in the nail it lost a little bit of reduction loss of the medial calcar, so I try to reduce that using a bone hook but this made it more into varus and so I accepted slight loss since this will compress, and it was nicely reduced into valgus and with good alignment slight distraction with the nail falling into the comminuted area of the greater trochanter out laterally. I then used the drop-down guide I remove the ball-tipped guidewire. Again another incision was made percutaneous to pass the triple sleeve and then passed the 3.2 mm guidewire up into the subchondral bone of the center of the femoral head and neck. I ensured to stay slightly posterior and inferior in the neck for good bone purchase. This measured 110 mm given that there will be some slight colla pse and impaction at the fracture site I took 5 mm off reamed to 105 mm and then impacted 105 mm helical blade to an appropriate depth. I locked this proximally and then backed it off a quarter turn to allow for compression. The sleeve was taken off I turned my attention distally. Using perfect sleetmute technique I then passed 2 5.0 mm fully threaded cortical screws a 46 mm proximally and then through the oblong hole a 52 mm. These achieved good purchase. Final radiographs were taken after the guide to removed, took xrays AP and lateral proximally and distally to ensure appropriate reduction of the fracture and appropriate placement of the nail. Wound thoroughly irrigated subcutaneous tissue closed with 2-0 Vicryl suture and skin with 3-0 Monocryl. Skin cleaned with wet dry dressing. 10 cc of 0.25% bupivacaine instilled in and around the soft tissue sites. Steri-Strips followed by silver Mepilex dressing was then placed. Patient woken up frm general anesthetic transferred off the operating table out of the traction set up and taken to postanesthetic care unit in stable condition. All sponge needle instrument counts were correct no complications plan to the patient weightbearing as tolerated readmitted under the hospitalist service follow-up in the office within 2 weeks time. Would typically order Xarelto but the patient on phenobarbital and that is contraindicated - so I will leave the VTE prophylaxis up to the hospitalist, usually for 30 days post op. PT/OT to see. Change dressing in 5 days, leave steris on. Surgical Findings: As above Complications Complications: No Admit VTE Documentation VTE Present on Admission: No VTE Mechan Device Prophylaxis: SCD's VTE Pharm Prophylaxis ordered?: No Reason prophylaxis not ordered: Drug Intolerance ( hopsitalist to dose / decide)
--- NOTE | 2025-01-19 14:32 | PCM.POST.ANE ---
Anesthesia: Postop Eval I Current Vital Signs Temperature: 96.8 F Pulse Rate: 86 Blood Pressure: 138/57 Respiratory Rate: 20 Pulse Ox: 100 Oxygen Delivery Method: Room Air Assessment Airway patent: Yes Spontaneous unlabored respirations: Yes Mental status: Awake and Calm nausea: No Vomiting: No Anesthesia Complication: No Fluid Hydration Crystalloid volume administer (ml): 1,300 Total IV fluid infused: 1,300 Progress Note Anesthesia document: Postop Eval 1 completed: Yes
--- NOTE | 2025-01-19 14:39 | CASEMGMT ---
RN CM to pt room for assessment, pt is off of the floor at this time. Assessment to be completed at later time.
--- NOTE | 2025-01-19 16:06 | CASEMGMT ---
MIRA CONNER Assessment Face to Face with patient for initial transition planning/care coordination assessment. MIRA CONNER introduced self and role at [facility], pt voices understanding. Pt is A&Ox4 and is resting comfortably in bed and is calm. Pt recently returned from surgery. Care providers, pharmacy, and demographics verified. Admitting dx: Left Hip Fracture PCP: [facility] - Pt is unsure who his specific PCP is Specialists: Denies Preferred Pharmacy: [facility] Insurance: [facility] A/B, [place] Prescription Benefit: [place] LNOK: Daughters - Yana and Romana Living Arrangements: Pt lives alone in a ranch style home with a flat entrance ADLs/IADLs: Pt states that he is indep at baseline Transportation: Self, daughters DME: Access to cane and crutches. Pt states that he does not have a FWW. PT is pending. Pt states that if a FWW is warranted, he would like to get one through his insurance. A verbal list of local in network DME companies parodied to the pt. Pt prefers [employer]. HHC/SNF: Denies hx of EtOH: Pt states that he drinks 7 beers per day and smokes multiple cigarettes per day. Denies illicit drug use. Pt denies wanting any cessation resources or SW follow up. Pt?s goal: Home Plan: TBD. Follow PT/OT eval. Follow for anticaog. Follow for FWW. At this time, the pt states that he plans to return home at the time of DC. Pt states that he has good support at home through his daughters. Pt states that he is unsure if he would like additional therapy or not and would like to wait ands see how PT goes first. Pt denies further questions or concerns. Report given to CARMENCITA MEYERS CM. Girish Torres RN, CM
--- NOTE | 2025-01-19 16:09 | POSTOPAN2_ITS ---
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 Spontaneous unlabored Yes 01/19/25 14:33 [employer]ICE PRESIDENT [email or web address] respirations Mental status Awake,Calm 01/19/25 14:33 [employer]ICE [email or web address] nausea No 01/19/25 14:33 [employer]ICE PRESIDENT [email or web address] Vomiting No 01/19/25 14:33 [employer]ICE PRESIDENT [email or web address] Anesthesia Postop Eval I: Fluid Summary Crystalloid volume administer 1,300 01/19/25 14:33 [employer]ICE [employer]IDENT [email or web address] (ml) Colloids volume administered ( ml) Blood Product volume administered (ml) Total IV fluid infused 1,300 01/19/25 14:33 [employer]ICE PRESIDENT [email or web address] Anesthesia Postop Eval I: Summary Notes Anesthesia Complication No 01/19/25 14:33 VICE PRESIDENT [employer] SOFTWARE [email or web address] Anesthesia Complication Comment: Post-operative progress note Anesthesia: Postop Eval II Evaluation Mental status: Awake and Calm Pain Level: 1 nausea: No Vomiting: No Complications Anesthesia Complication: No
--- NOTE | 2025-01-19 16:09 | PCM.POSTANE2 ---
Anesthesia Postop Eval I Sum Postop Eval Completion status Anesthesia document: Postop Eval 1 completed: Yes Anesthesia Postop Eval I Summary Anesthesia Postop Eval I Summary: Anesthesia Postop Eval I: Assessment Summary Airway patent Yes 01/19/25 14:33 [email or web address] Spontaneous unlabored Yes 01/19/25 14:33 [email or web address] respirations Mental status Awake,Calm 01/19/25 14:33 [email or web address] nausea No 01/19/25 14:33 [email or web address] Vomiting No 01/19/25 14:33 [email or web address] Anesthesia Postop Eval I: Fluid Summary Crystalloid volume administer 1,300 01/19/25 14:33 [email or web address] (ml) Colloids volume administered ( ml) Blood Product volume administered (ml) Total IV fluid infused 1,300 01/19/25 14:33 [email or web address] Anesthesia Postop Eval I: Summary Notes Anesthesia Complication No 01/19/25 14:33 [email or web address] Anesthesia Complication Comment: Post-operative progress note Anesthesia: Postop Eval II Evaluation Mental status: Awake and Calm Pain Level: 1 nausea: No Vomiting: No Complications Anesthesia Complication: No
[2025-01-19] MEDS: Senna/Docusate Sodium 1 Tablet 2 TABLET PO (20:55)
--- NOTE | 2025-01-19 22:25 | PCM.HOSP.N ---
Hospitalist Note Left corneal abrasion noted, erythromycin ophthalmic ointment TID to left eye.
[2025-01-20] VITALS: O2SAT 95
[2025-01-20 00:03] VITALS: BP 110/70; PULSE 77; RESP 16; TEMP 36.6; O2SAT 95
[2025-01-20] MEDS: Erythromycin Base 1 OPTH.TUBE 1 APPLIC LEFT EYE ×2 (00:19→05:15)
[2025-01-20] MEDS: 0.9% Normal Saline (1000mL) 1,000 ML 125 ML IV (00:22)
[2025-01-20 05:12] LABS: Hematocrit 27.0 % (40-54); Hemoglobin 9.6 g/dL (13.0-16.5); Immature Granulocytes Count 0.060 X10^3/uL (0.0-0.0); Mean Corp Hgb Conc 35.6 g/dL (32-36); Mean Corpuscular Volume 101.5 fL (80-94); Mean Platelet Vol. 9.3 fl (6.2-12.0); NRBC Flagged by Analyzer 0 % (0-5); Platelet Count 153 K/mm3 (150-450); RBC Distribution Width CV 12.2 % (11.6-14.6); RBC Distribution Width SD 45.8 fl (35.1-43.9); Red Blood Count 2.66 M/mm3 (4.6-6.2); White Blood Count 9.0 K/mm3 (4.4-11.0)
[2025-01-20 06:18] LABS: Anion Gap 9 (5-15); BUN 9 mg/dL (4-19); BUN/Creat Ratio 14.4 RATIO (10-20); Calcium,Total 7.8 mg/dL (7.6-11.0); Carbon Dioxide 19.7 mmol/L (21.0-32.0); Chloride 104 mmol/L (98-108); Estimated Creatinine Clearance 91.88 ml/min (50-250); Glucose 110 mg/dL (70-99); Potassium 4.3 mmol/L (3.3-5.1)
[2025-01-20 08:37] VITALS: BP 110/57; PULSE 79; RESP 17; TEMP 36.9; O2SAT 96
--- NOTE | 2025-01-20 08:47 | PCM.PN.ORT ---
Subjective Subjective POD 1 left hip ORIF long nail for IT hip fracture. well. sitting to edge of bed with PT. no concerns. Objective Data Objective Data Vital Signs: Vital Signs Temp Pulse Resp BP Pulse Ox O2 Del Method 98.4 F 79 17 110/57 L 96 Room Air 01/20/25 08:37 01/20/25 08:37 01/20/25 08:37 01/20/25 08:37 01/20/25 08:37 01/20/25 08:37 Oxygen Delivery Method Room Air Weight: 162 lb 0.636 oz Body Mass Index (BMI) 22.6 Intake & Output: Intake and Output for Last 24 Hours 01/18/25 01/19/25 01/20/25 23:59 23:59 23:59 Intake Total 1000 / 1200 3476.67 / 3476.67 1400 / 1400 Output Total 1625 / 1625 750 / 750 Balance 1000 / 850 1851.67 / 1851.67 650 / 650 Lab / Micro Data 01/20/25 04:57 01/20/25 04:57 Labs: Laboratory Results - last 24 hr 01/19/25 06:25: Antibody Screen NEGATIVE 01/20/25 04:57: WBC 9.0, RBC 2.66 L, Hgb 9.6 L, Hct 27.0 L, MCV 101.5 H, MCH 36.1 H, MCHC 35.6, RDW Std Deviation 45.8 H, RDW Coeff of Robinson 12.2, Plt Count 153, MPV 9.3, Immature Gran % (Auto) 0.700, Neut % (Auto) 78.7 H, Lymph % (Auto) 10.2 L, Emmons % (Auto) 10.3 H, Eos % (Auto) 0.0, Baso % (Auto) 0.1, Absolute Neuts (auto) 7.1, Absolute Lymphs (auto) 0.92, Nucleated RBC % 0, Sodium 133, Potassium 4.3, Chloride 104, Carbon Dioxide 19.7 L, Anion Gap 9, BUN 9, Creatinine 0.64 L, Estim Creat Clear Calc 91.88, Est GFR (MDRD) Non-Af 103, BUN/Creatinine Ratio 14.4, Glucose 110 H, Calcium 7.8 Radiography Diagnostic Testing: Radiology Impression C-Arm Fluoroscopy 01/19/25 13:05 IMPRESSION: Intraoperative fluoroscopy was performed for fracture fixation of the proximal left femoral fracture site, including left femoral intramedullary nail with proximal distal interlocking screws. 5 fluoroscopic images are presented. Reading Location: [place] [address] Hip X-Ray 01/19/25 13:05 IMPRESSION: Intraoperative fluoroscopy was performed for fracture fixation of the proximal left femoral fracture site, including left femoral intramedullary nail with proximal distal interlocking screws. 5 fluoroscopic images are presented. Reading Location: [place] [address] Rhythm Strip Rhythm Strip: Sinus Tach Rate: 104 Ectopy: None Physical Exam Const alert, no apparent distress and well nourished Extremity normal capillary refill Extremity Narrative: dressing not sticking well proximal aspect of proximal dressing, but thigh soft, no active bleeding. nvi df and pf the foot, normal sensation, well perfused. Assessment & Plan Assessment/Plan (1) Closed intertrochanteric fracture of left femur: PLAN: POD 1 L hip ORIF WBAT OK to change / reinforce dressing if needed - pls leave steri strips on VTE prophylaxis per hospitalist (interaction with phenobarb)
[2025-01-20] MEDS: Senna/Docusate Sodium 1 Tablet 2 TABLET PO ×2 (09:24→20:14)
[2025-01-20] MEDS: Nicotine (PBKC) 21 MG Patch TD (09:24)
[2025-01-20] MEDS: Thiamine Hydrochloride 100 MG Tablet PO (09:25)
[2025-01-20] MEDS: 0.9% Saline Lock 10 ML Syringe IV ×2 (09:25→20:14)
[2025-01-20 10:58] VITALS: O2SAT 96
--- NOTE | 2025-01-20 12:19 | CASEMGMT ---
Addendum entered by Lissy Marquez 01/20/25 16:11: TC to pt dtr, she has chosen for HHC 1. [facility] 2. [facility] 3. [facility]. Referral sent to [facility] at this time via [facility]. Addendum entered by Lissy Marquez 01/20/25 14:27: MIRA CONNER into pt room, pt states he would like his dtr to be contacted to pick HHC. Pt states she is a nurse, name is Karthik. TC to pt dtr, she is aware of pt choice for HHC and that he would like her to make the selection. She requested the information be electronically shared via text. Sent to her at this time. She is aware dc plan is for tomorrow as of now. Original Note: Discussed with therapy recommendations. MIRA CONNER into pt room to discuss dc planning. Discussed with pt therapy recommendation of SNF. Pt states that he does not want to go to a SNF. Pt states he will do his own therapy at home. Discussed the importance of therapy. Pt states he does not have anyone to transport him to therapy and he has a manual vehicle and cannot drive. Discussed HHC therapy with pt. Pt states he would be agreeable to this. Patient was provided a list of [facility] providers including quality and resource use data and consistent with the patient?s preferred geographic region, medical needs, and insurance network were provided from the [employer] Guide. Pt to review list and speak with his dtr. He is aware to give top 3 choices. MIRA CONNER to check back. Pt denies any further questions.
--- NOTE | 2025-01-20 14:10 | PCM.PN.HOSP ---
Objective Data Objective Data Vital Signs: Vital Signs Temp Pulse Resp BP Pulse Ox O2 Del Method 98.4 F 79 17 110/57 L 96 Room Air 01/20/25 08:37 01/20/25 08:37 01/20/25 08:37 01/20/25 08:37 01/20/25 10:58 01/20/25 08:37 Oxygen Delivery Method Room Air Weight: 162 lb 0.636 oz Body Mass Index (BMI) 22.6 Intake & Output: Intake and Output for Last 24 Hours 01/18/25 01/19/25 01/20/25 23:59 23:59 23:59 Intake Total 1000 / 1200 3476.67 / 3476.67 1400 / 1400 Output Total 1625 / 1625 1050 / 1050 Balance 1000 / 850 1851.67 / 1851.67 350 / 350 Lab / Micro Data 01/20/25 04:57 01/20/25 04:57 Labs: Laboratory Results - last 24 hr 01/20/25 04:57: WBC 9.0, RBC 2.66 L, Hgb 9.6 L, Hct 27.0 L, MCV 101.5 H, MCH 36.1 H, MCHC 35.6, RDW Std Deviation 45.8 H, RDW Coeff of Robinson 12.2, Plt Count 153, MPV 9.3, Immature Gran % (Auto) 0.700, Neut % (Auto) 78.7 H, Lymph % (Auto) 10.2 L, Pennington % (Auto) 10.3 H, Eos % (Auto) 0.0, Baso % (Auto) 0.1, Absolute Neuts (auto) 7.1, Absolute Lymphs (auto) 0.92, Nucleated RBC % 0, Sodium 133, Potassium 4.3, Chloride 104, Carbon Dioxide 19.7 L, Anion Gap 9, BUN 9, Creatinine 0.64 L, Estim Creat Clear Calc 91.88, Est GFR (MDRD) Non-Af 103, BUN/Creatinine Ratio 14.4, Glucose 110 H, Calcium 7.8 Radiography Diagnostic Testing: Radiology Impression C-Arm Fluoroscopy 01/19/25 13:05 IMPRESSION: Intraoperative fluoroscopy was performed for fracture fixation of the proximal left femoral fracture site, including left femoral intramedullary nail with proximal distal interlocking screws. 5 fluoroscopic images are presented. Reading Location: [facility]1 Hip X-Ray 01/19/25 13:05 IMPRESSION: Intraoperative fluoroscopy was performed for fracture fixation of the proximal left femoral fracture site, including left femoral intramedullary nail with proximal distal interlocking screws. 5 fluoroscopic images are presented. Reading Location: [place] [address] Rhythm Strip Rhythm Strip: Sinus Tach Rate: 104 Ectopy: None Physical Exam Narrative Seen and examined. Patient had left hip ORIF on 01/19. He did well with physical therapy. He was admitted after fell down on left side after the dog pulled him. He was walking the dog. Patient has bruises on the left upper extremity. Denies hitting head or loss of consciousness. Patient drinks 7 beers every day Physical exam General: Alert, Oriented x3, Cooperative HEENT: Atraumatic, PERRLA, EOMI, Normocephalic. Oral: No Gingival or Mucosal Lesions/ Ulcerations Neck: Supple, No JVD, Negative Carotid Bruits Chest wall/Lungs: Air entry diminished in bilateral lung bases. No crepitation/rhonchi Cardiovascular: Regular rate and rhythm, Normal S1,S2, No M/G/R Abdomen: Bowel Sounds Present, Soft, Non Tender, Non-Distended : No dysuria. No renal angle tenderness. No suprapubic tenderness. Extremities: No edema, Capillary Refill Less than 3 Seconds Skin: Left hip surgical dressing is dry. Multiple bruises in the left upper extremity. Chronic scarring also on the left and right upper extremity sensory. Amputation of the finger. Musculoskeletal: Tenderness present over the left hip joint mainly and greater trochanter. ROM restricted Neurological: Cranial nerves II-XII grossly intact, DTR 2+/4. No acute focal neurological deficit. Psych/Mental Status: Flat affect Assessment & Plan Assessment/Plan (1) Closed intertrochanteric fracture of left femur: (2) Alcohol dependence: (3) Hyponatremia: (4) Tobacco use: PLAN: Plan 69-year-old gentleman with history of chronic alcohol use is being admitted for management of fall resulting into left hip fracture # Acute debility due to left intratrochanteric fracture from fall -Imaging: acute comminuted left intratrochanteric fracture with a lesser trochanteric fracture fragment mildly displaced -Ortho consult reviewed and appreciated -Pain control and scheduled bowel regimen -PT/OT -Case management and social work consults for DC planning Perioperative risk evaluation: Twelve-lead EKG reviewed. Sinus tachycardia at 104 beats minute. LAD. 01/20: Patient had left hip ORIF on 01/19/2025. On erythromycin ophthalmic ointment to left eye after left corneal abrasion was noted by Sara Cleveland NP # Chronic alcohol use dependence and tolerance -Patient reportedly drinks every day from 8 AM to 8 PM however over the 12-hour period he only drinks 7 bottles of 6% 12 ounce beers a day which was confirmed by family in the room -Has not drank in almost 24 hours and has no significant withdrawal symptoms at this time Patient has developed tolerance to the above alcohol and is not withdrawing. Continue short-term scheduled dose, continue 32.5 every 6 hours x 24 hours and have CIWA with Ativan coverage, if patient has high scores can always consider doing full taper but again lower suspicion for that -Thiamine and folate. 01/20: Not having active alcohol withdrawal. # Hyponatremia -Unclear chronicity, sodium of 127 and is asymptomatic -Suspect this is due to patient's chronic alcohol intake with poor p.o. intake and some dehydration -Patient receiving IV fluids TSH 5.6, elevated 01/19: Serum sodium 130. K3.8. Bicarb 19.8. Anion gap 10. # Elevated anion gap - Patient anion gap of 16 and a bicarb of 18.3 - Patient does have ketones in his urine and has poor p.o. intake, suspect that this is elevated due to either starvation ketosis, alcoholic ketosis or combination of both Lactic acid 1.6. - Do not currently suspect any other underlying problems - Liberalize diet as tolerated - Receiving IV fluids #Tobacco use -Advise cessation -Nicotine replacement available if desired -i/s #DVT ppx: SCDs Laboratory Results 01/18/25 14:18: WBC 9.6, RBC 3.70 L, Hgb 13.5, Hct 36.8 L, MCV 99.5 H, MCH 36.5 H, MCHC 36.7 H, RDW Std Deviation 44.0 H, RDW Coeff of Robinson 12.1, Plt Count 172, MPV 10.1, Immature Gran % (Auto) 0.400, Neut % (Auto) 78.3 H, Lymph % (Auto) 10.3 L, Pennington % (Auto) 10.7 H, Eos % (Auto) 0.1, Baso % (Auto) 0.2, Absolute Neuts (auto) 7.5, Absolute Lymphs (auto) 0.98, Nucleated RBC % 0, PT 13.7, INR 1.0, APTT 28.7, Sodium 127 L, Potassium 4.3, Chloride 93 L, Carbon Dioxide 18.3 L, Anion Gap 16 H, BUN 9, Creatinine 0.65 L, Estim Creat Clear Calc 94.13, Est GFR (MDRD) Non-Af 102, BUN/Creatinine Ratio 13.3, Glucose 97, Calcium 8.6, Total Bilirubin 1.14, AST 43 H, ALT 34, Alkaline Phosphatase 51, Total Creatine Kinase 175, Total Protein 7.2, Albumin 3.7, Globulin 3.5, Albumin/Globulin Ratio 1.0 01/18/25 16:10: Lactic Acid 1.6 01/18/25 16:12: Urine Color Lynne, Urine Clarity Clear, Urine pH 6.0, Ur Specific Lagrange 1.020, Urine Protein 15 H, Urine Glucose (UA) Normal, Urine Ketones 50 H, Urine Occult Blood 10 H, Urine Nitrite Negative, Urine Bilirubin Negative, Urine Urobilinogen 1 H, Ur Leukocyte Esterase Negative, Urine RBC 0-5 SEEN, Urine WBC 0 SEEN, Ur Squamous Epith Cells 0-5 SEEN, Urine Bacteria 2+, Urine Mucus 0 SEEN 01/19/25 06:25: WBC 7.7, RBC 3.16 L, Hgb 11.4 L, Hct 32.0 L, MCV 101.3 H, MCH 36.1 H, MCHC 35.6, RDW Std Deviation 45.4 H, RDW Coeff of Robinson 12.2, Plt Count 164, MPV 9.0, Immature Gran % (Auto) 0.500, Neut % (Auto) 62.9, Lymph % (Auto) 22.7, Pennington % (Auto) 12.5 H, Eos % (Auto) 0.9, Baso % (Auto) 0.5, Absolute Neuts (auto) 4.8, Absolute Lymphs (auto) 1.74, Nucleated RBC % 0, PT 14.0, INR 1.1, APTT 30.4, Sodium 130 L, Potassium 3.8, Chloride 100, Carbon Dioxide 19.8 L, Anion Gap 10, BUN 11, Creatinine 0.64 L, Estim Creat Clear Calc 91.88, Est GFR (MDRD) Non-Af 103, BUN/Creatinine Ratio 16.7, Glucose 87, Calcium 7.9, Total Bilirubin 0.69, Direct Bilirubin 0.21, AST 32, ALT 24, Alkaline Phosphatase 39 L, Total Protein 6.1, Albumin 2.9 L, Globulin 3.2, Albumin/Globulin Ratio 0.9, TSH 5.600 H, Blood Type A POSITIVE, Antibody Screen NEGATIVE Charges/Coding Visit Charges Inpatient E&M: 12516 Subs Hosp L2
[2025-01-20 14:42] VITALS: BP 116/50; PULSE 98; RESP 16; TEMP 37.2; O2SAT 95
[2025-01-20 20:10] VITALS: BP 110/58; PULSE 87; RESP 16; TEMP 36.6; O2SAT 98
[2025-01-21 02:00] VITALS: BP 117/58; PULSE 81; RESP 16; TEMP 36.6; O2SAT 97
[2025-01-21 07:06] LABS: Hematocrit 24.6 % (40-54); Hemoglobin 8.7 g/dL (13.0-16.5); Immature Granulocytes Count 0.040 X10^3/uL (0.0-0.0); Mean Corp Hgb Conc 35.4 g/dL (32-36); Mean Corpuscular Volume 103.4 fL (80-94); Mean Platelet Vol. 8.8 fl (6.2-12.0); NRBC Flagged by Analyzer 0 % (0-5); Platelet Count 182 K/mm3 (150-450); RBC Distribution Width CV 12.5 % (11.6-14.6); RBC Distribution Width SD 47.3 fl (35.1-43.9); Red Blood Count 2.38 M/mm3 (4.6-6.2); White Blood Count 6.7 K/mm3 (4.4-11.0)
[2025-01-21 07:50] VITALS: BP 121/62; PULSE 83; RESP 18; TEMP 36.7; O2SAT 96
[2025-01-21 07:56] LABS: Anion Gap 8 (5-15); BUN 11 mg/dL (4-19); BUN/Creat Ratio 21.4 RATIO (10-20); Calcium,Total 7.7 mg/dL (7.6-11.0); Carbon Dioxide 21.5 mmol/L (21.0-32.0); Chloride 107 mmol/L (98-108); Estimated Creatinine Clearance 91.88 ml/min (50-250); Glucose 88 mg/dL (70-99); Potassium 3.7 mmol/L (3.3-5.1)
[2025-01-21] MEDS: Senna/Docusate Sodium 1 Tablet 2 TABLET PO (07:56)
[2025-01-21] MEDS: Nicotine (PBKC) 21 MG Patch TD (07:57)
[2025-01-21] MEDS: Thiamine Hydrochloride 100 MG Tablet PO (07:57)
--- NOTE | 2025-01-21 10:43 | CASEMGMT ---
Addendum entered by Lissy Marquez 01/21/25 13:07: Per admissions [facility] does not have any bed availability but [facility] Re[facility] does. Pt reviewed and accepted if he is agreeable. MIRA CONNER into pt room, pt dtr Karthik present. Discussed with pt and dtr difference between rehab and TCU, pt is agreeable to this after exploring all options and possible issues that could come up at home without care as far as safety. Notified admissions, pt can admit tomorrow. Updated hospitalist on pt plan. DC Plan: [facility] Rehab unit 01/22/25. Addendum entered by Lissy Marquez 01/21/25 11:51: Pt dtr selected [facility] TCU and [facility] as second choice. MIRA CONNER into pt room, discussed with pt the options for outpt therapy vs SNF. 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 Discussed pt using [email or web address] and they have a van that could transport him if he can get in and out of the van on his own. Pt states he is not sure he can do that. Discussed then for him to consider SNF. He is aware of the options his dtr chose. Pt is agreeable to see if [facility]CU had bed availability. Referral sent to check this. Original Note: MIRA CONNER into pt room to make aware that pt first and second choice has accepted but the first choice is pending. Pt states he would like to wait until noon to see if his first choice accepts. Pt and dtr Karthik who is in room asked about PCP, pt states he has not seen a doctor in approx 15 years. Pt is aware that C is not an option as the agency who accepts without a pcp does not cover his area. Dtr requests SNF list, sent via text at this time. Pt dtr had to leave for a meeting.
[2025-01-21 14:04] VITALS: BP 109/62; PULSE 97; RESP 18; TEMP 36.6; O2SAT 98
--- NOTE | 2025-01-21 16:23 | PN.HOSP_ITS ---
Objective Data Objective Data Vital Signs: Vital Signs Temp Pulse Resp BP Pulse Ox O2 Del Method 97.8 F 97 18 109/62 98 Room Air 01/21/25 14:04 01/21/25 14:04 01/21/25 14:04 01/21/25 14:04 01/21/25 14:04 01/21/25 14:04 Oxygen Delivery Method Room Air Weight: 162 lb 0.636 oz Body Mass Index (BMI) 22.6 Intake & Output: Intake and Output for Last 24 Hours 01/19/25 01/20/25 01/21/25 23:59 23:59 23:59 Intake Total 3476.67 / 3476.67 1640 / 1640 Output Total 1625 / 1625 1325 / 1575 750 / 750 Balance 1851.67 / 1851.67 315 / 65 -750 / -750 Lab / Micro Data 01/21/25 06:40 01/21/25 06:40 Labs: Laboratory Results - last 24 hr 01/21/25 06:40: WBC 6.7, RBC 2.38 L, Hgb 8.7 L, Hct 24.6 L, MCV 103.4 H, MCH 36.6 H, MCHC 35.4, RDW Std Deviation 47.3 H, RDW Coeff of Robinson 12.5, Plt Count 182, MPV 8.8, Immature Gran % (Auto) 0.600, Neut % (Auto) 67.0, Lymph % (Auto) 20.0, Blanco % (Auto) 9.8, Eos % (Auto) 1.6, Baso % (Auto) 1.0, Absolute Neuts (auto) 4.5, Absolute Lymphs (auto) 1.34, Nucleated RBC % 0, Sodium 137, Potassium 3.7, Chloride 107, Carbon Dioxide 21.5, Anion Gap 8, BUN 11, C reatinine 0.53 L, Estim Creat Clear Calc 91.88, Est GFR (MDRD) Non-Af 109, B UN/Creatinine Ratio 21.4 H, Glucose 88, Calcium 7.7 Rhythm Strip Rhythm Strip: Sinus Tach Rate: 104 Ectopy: None Physical Exam Narrative Seen and examined. Patient had left hip ORIF on 01/19. He did well with physical therapy. No acute issues. Moving his bowels. He was admitted after fell down on left side after the dog pulled him. He was walking the dog. Patient has bruises on the left upper extremity. Denies hitting head or loss of consciousness. Patient drinks 7 beers every day Physical exam General: Alert, Oriented x3, Cooperative HEENT: Atraumatic, PERRLA, EOMI, Normocephalic. Oral: No Gingival or Mucosal Lesions/ Ulcerations Neck: Supple, No JVD, Negative Carotid Bruits Chest wall/Lungs: Air entry diminished in bilateral lung bases. No crepitation/rhonchi Cardiovascular: Regular rate and rhythm, Normal S1,S2, No M/G/R Abdomen: Bowel Sounds Present, Soft, Non Tender, Non-Distended : No dysuria. No renal angle tenderness. No suprapubic tenderness. Extremities: No edema, Capillary Refill Less than 3 Seconds Skin: Mild bloodstain over the left hip surgical dressing. Left lower thigh dressing was changed. Multiple chronic bruises in the left upper extremity. Chronic scarring also on the left and right upper extremity sensory. Amputation of the finger. Musculoskeletal: Tenderness present over the left hip joint mainly and greater trochanter. ROM restricted Neurological: Cranial nerves II-XII grossly intact, DTR 2+/4. No acute focal neurological deficit. Psych/Mental Status: Flat affect Assessment & Plan Assessment/Plan (1) Closed intertrochanteric fracture of left femur: (2) Alcohol dependence: (3) Hyponatremia: (4) Tobacco use: PLAN: Plan 69-year-old gentleman with history of chronic alcohol use is being admitted for management of fall resulting into left hip fracture # Acute debility due to left intratrochanteric fracture from fall -Imaging: acute comminuted left intratrochanteric fracture with a lesser trochanteric fracture fragment mildly displaced -Ortho consult reviewed and appreciated -Pain control and scheduled bowel regimen -PT/OT -Case management and social work consults for DC planning Perioperative risk evaluation: Twelve-lead EKG reviewed. Sinus tachycardia at 104 beats minute. LAD. 01/20: Patient had left hip ORIF on 01/19/2025. On erythromycin ophthalmic ointment to left eye after left corneal abrasion was noted by Sara Cleveland NP 01/21: Mild bloody stain dry on the left hip surgical dressing. Left lower leg surgical dressing was changed as per the patient. PT and OT. Plan for discharge to acute rehab tomorrow on 01/22. # Chronic alcohol use dependence and tolerance -Patient reportedly drinks every day from 8 AM to 8 PM however over the 12-hour period he only drinks 7 bottles of 6% 12 ounce beers a day which was confirmed by family in the room -Has not drank in almost 24 hours and has no significant withdrawal symptoms at this time Patient has developed tolerance to the above alcohol and is not withdrawing. Continue short-term scheduled dose, continue 32.5 every 6 hours x 24 hours and have CIWA with Ativan coverage, if patient has high scores can always consider doing full taper but again lower suspicion for that -Thiamine and folate. 01/20: Not having active alcohol withdrawal. # Hyponatremia -Unclear chronicity, sodium of 127 and is asymptomatic -Suspect this is due to patient's chronic alcohol intake with poor p.o. intake and some dehydration -Patient receiving IV fluids TSH 5.6, elevated 01/19: Serum sodium 130. K3.8. Bicarb 19.8. Anion gap 10. # Elevated anion gap - Patient anion gap of 16 and a bicarb of 18.3 - Patient does have ketones in his urine and has poor p.o. intake, suspect that this is elevated due to either starvation ketosis, alcoholic ketosis or combination of both Lactic acid 1.6. - Do not currently suspect any other underlying problems - Liberalize diet as tolerated - Receiving IV fluids #Tobacco use -Advise cessation -Nicotine replacement available if desired -i/s #DVT ppx: SCDs Charges/Coding Visit Charges Inpatient E&M: 97839 Subs Hosp L2
[2025-01-21] MEDS: APIXABAN 2.5 MG TABLET (WCH) PO (17:40)
[2025-01-21 20:34] VITALS: BP 117/84; PULSE 97; RESP 18; TEMP 36.8; O2SAT 99
[2025-01-21] MEDS: Erythromycin Base 1 OPTH.TUBE 1 APPLIC LEFT EYE (20:47)
[2025-01-21 21:43] VITALS: BP 124/90; PULSE 91; RESP 18; TEMP 36.7; O2SAT 99
[2025-01-22 03:00] VITALS: BP 112/68; PULSE 80; RESP 16; TEMP 35.8; O2SAT 99
--- NOTE | 2025-01-22 07:51 | PCM.DC.SUM ---
Providers Date of Admission: 01/18/25 Date of Discharge: 01/22/25 Primary Care Physician: [facility] Hospital Consultations 01/18/25 17:43 Consult: Orthopedics Routine Consulting Provider: Artur Espinoza Reason for Consult: left intertrochanteric fx EMERGENT Consult: No MD Notified: Yes Date Notified: 01/18/25 Time Notified: 16:16 Method of Notification: ED Physician Initiated Reason For Visit: LEFT HIP FRACTURE Diagnosis Discharge Diagnosis (1) Closed intertrochanteric fracture of left femur: Status: Acute Code(s): S72.142A - Displaced intertrochanteric fracture of left femur, initial encounter for closed fracture (2) Alcohol dependence: Status: Acute Code(s): F10.20 - Alcohol dependence, uncomplicated (3) Hyponatremia: Status: Acute Code(s): E87.1 - Hypo-osmolality and hyponatremia (4) Tobacco use: Status: Acute Code(s): Z72.0 - Tobacco use Medications at Discharge Home Medications acetaminophen 500 mg tablet 1,000 mg (2 x 500 mg) PO Q8 #0 tabs 01/22/25 apixaban 5 mg tablet (Eliquis) 2.5 mg (1/2 x 5 mg) PO Q12 #0 tabs 01/22/25 erythromycin 5 mg/gram (0.5 %) eye ointment 1 applic LEFT EYE TID #0 grams 01/22/25 folic acid 1 mg tablet 1 mg PO BREAKFAST #0 tabs 01/22/25 melatonin 10 mg disintegrating tablet 10 mg PO QHS PRN PRN Insomnia #0 tabs 01/22/25 nicotine 21 mg/24 hr daily transdermal patch 21 mg transdermal DAILY #0 ea 01/22/25 oxycodone 5 mg tablet 5 mg PO Q4H PRN PRN Pain Score 4-10 #0 tabs 01/22/25 sennosides 8.6 mg-docusate sodium 50 mg tablet (Stimulant Laxative Plus) 2 tab PO BID #0 tabs 01/22/25 Hospital Course Operations - (Left hip open reduction internal fixation Synthes TFN-a) Procedures EKG and - (CT brain/hip and pelvic x-ray/chest x-ray) Summary of Care Provided Minutes Spent on Discharge: 37 Hospital Course: Mr. Montenegro is a 69-year-old white male who presents emergency department with hospital 01/18/2025 with a chief complaint of left hip pain after mechanical fall. He was letting his dog out and putting her back on the leash when she took off and caused his legs to go out from under him at which time he fell onto his left hip. He had immediate pain was unable to get up. He reported he laid there for couple hours before someone became aware. He he had no other traumatic injuries. On presentation family did note that he drinks from about 8 AM to 8 PM but had not had anything since the night prior. He had no withdrawal symptoms on presentation. Vital signs on presentation showed temperature of 99.1, heart rate 104, blood pressure 149/76, heart rate 18 and pulse ox was 96% on room air. CBC is unremarkable. Chemistry panel showed hyponatremia with sodium of 127, CPK of 175 and normal BUN and creatinine. CT of the brain showed no acute intracranial bleeding. Chest x-ray was unremarkable. EKG was unremarkable. Hip and pelvic x-rays demonstrated acute comminuted left intertrochanteric fracture with a lesser trochanteric fracture fragment mildly displaced. Orthopedic surgery was consulted by the emergency department and the patient was admitted. Patient was evaluated by orthopedic surgery and taken to the OR on 01/19/2025 at which time a left hip ORIF was performed by Dr. Espinoza. Postoperative instructions were weightbearing as tolerated with office follow-up in 2 weeks. He is to leave his postoperative dressing in place for 5 days postoperatively and leave Steri-Strips in place until they fall off. DVT prophylaxis with Eliquis 2.5 mg p.o. twice daily was initiated and to continue for 30 days postoperatively. Patient had no signs of alcohol withdrawal during his hospital course despite his fairly heavy use as an outpatient. As needed medications were utilized for any symptoms which she did not have. He was having good bowel movements and bowel sounds at the time of discharge. He was evaluated by physical and Occupational Therapy postoperatively and they recommended ongoing skilled therapy at discharge. He was accepted by the acute rehab center and bed became available for discharge on 01/22/2025. He was discharged to acute rehab in stable condition at that time. He is to follow-up with his PCP at the DC as needed and follow-up with Dr. Espinoza from orthopedic surgery in 2 weeks. Discharge diagnoses: Acute left intertrochanteric fracture status post ORIF Mechanical fall Debility secondary to fracture Chronic alcohol use/dependence Hyponatremia-resolved Anion gap metabolic acidosis-resolved - Suspect starvation ketosis on presentation Acute anemia secondary to the above Tobacco abuse Physical Exam Narrative Patient states overall his pain is fairly well-controlled as long as he is resting. Does have pain with being up and around. Const alert, oriented x3, no apparent distress, average body habitus and no limitations; Negative for healthy appearing Constitutional Narrative: Open bone age, white male, sitting up in chair at bedside, watching television, appears comfortable, nontoxic General Appearance: cooperative, comfortable, well kempt and well developed Exam Limitations: no limitations HEENT normocephalic, head/scalp atraumatic and moist oral mucous membranes HEENT Narrative: Mild hearing loss, dentition is poor, Mallampati is 2, no thrush Eyes conjunctivae normal Eyes Narrative: No scleral icterus Neck supple Neck Narrative: Trachea midline Resp normal respiratory effort, no retractions, no use of accessory muscles and clear to auscultation bilaterally Resp Narrative: Diminished but clear Auscultation: Negative for rales, rhonchi or wheezes Cardio regular rate, regular rhythm, S1 normal heart sound, S2 normal heart sound, no murmurs, no rub, no gallops and no clicks GI normal to inspection, nondistended, normoactive bowel sounds, soft to palpation and non-tender Extremity no clubbing, cyanosis or edema Extremity Narrative: Pedal pulses are 2+, radial pulses 2+ Skin skin turgor normal and no jaundice Skin Narrative: Postoperative dressing is clean dry and intact Neuro oriented x3, moves all extremities and no focal motor deficits Speech: speech normal Psych affect normal Psych Narrative: Pleasant, interacts appropriately Weight / BMI Weight Weight: 73.5 kg Body Mass Index (BMI) 22.6 ABG / Lab / Microbiology Data 01/22/25 09:03 01/21/25 06:40 Laboratory: Laboratory Results - last 24 hr 01/22/25 09:03: WBC 8.3, RBC 2.82 L, Hgb 10.2 L, Hct 29.3 L, MCV 103.9 H, MCH 36.2 H, MCHC 34.8, RDW Std Deviation 47.0 H, RDW Coeff of Robinson 12.4, Plt Count 264, MPV 8.5, Immature Gran % (Auto) 0.800, Neut % (Auto) 70.0, Lymph % (Auto) 18.1 L, [place] % (Auto) 8.6, Eos % (Auto) 1.8, Baso % (Auto) 0.7, Absolute Neuts (auto) 5.8, Absolute Lymphs (auto) 1.49, Nucleated RBC % 0 D/C Instructions Discharge Activity: Use Walker May shower in (days): 5 (Postoperatively) Weight Bearing Status: Weight bearing as tolerated Keep extremity elevated above heart level: Operative Extremity Change Dressing in: 5 days (Postoperatively and leave Steri-Strips in place until they fall off) DC O2, CPAP, BIPAP Needs Home O2 Discharge instructions: No Meaningful Use Info Meaningful Use Meaningful Use Diagnoses (Choose all that apply): None applicable Discharge Plan Admission Admit Date/Time: 01/18/25 16:06 Primary Reason for Your Visit: L Hip Pain Attending Provider: Fabiola Browne Primary Care Provider: [facility] Consulting Providers: Artur Espinoza; Amee Ramirez; Dionte Carranza Discharge Orders/Prescriptions Prescriptions: New sennosides-docusate sodium [Stimulant Laxative Plus] 8.6-50 mg Tablet 2 tab PO BID Qty: 0 0RF acetaminophen 500 mg Tablet 1,000 mg PO Q8 Qty: 0 0RF erythromycin 5 mg/gram (0.5 %) Ointment 1 applic LEFT EYE TID Qty: 0 0RF nicotine 21 mg/24 hr Patch 24 Hour 21 mg transdermal DAILY Qty: 0 0RF folic acid 1 mg Tablet 1 mg PO BREAKFAST Qty: 0 0RF oxycodone 5 mg Tablet 5 mg PO Q4H PRN PRN (Reason: Pain Score 4-10) Qty: 0 0RF Eliquis 5 mg Tablet 2.5 mg PO Q12 Qty: 0 0RF Rx Instructions: For 30 days post op then stop melatonin 10 mg Tablet,Disintegrating 10 mg PO QHS PRN PRN (Reason: Insomnia) Qty: 0 0RF Referrals / Follow Up: Artur Espinoza MD [Med Staff - Active Staff] - Within 2 Weeks [facility] [Primary Care Provider] - Disposition Disposition (needs filled in before D/C Order can be placed): Inpatient Rehab Unit/Facility Charges/Coding Visit Charges Inpatient E&M: 07329 Disch Hosp >30min
[2025-01-22] MEDS: Thiamine Hydrochloride 100 MG Tablet PO (08:33)
[2025-01-22 08:36] VITALS: BP 138/72; PULSE 92; RESP 17; TEMP 37.5; O2SAT 97
[2025-01-22 09:19] LABS: Hematocrit 29.3 % (40-54); Hemoglobin 10.2 g/dL (13.0-16.5); Immature Granulocytes Count 0.070 X10^3/uL (0.0-0.0); Mean Corp Hgb Conc 34.8 g/dL (32-36); Mean Corpuscular Volume 103.9 fL (80-94); Mean Platelet Vol. 8.5 fl (6.2-12.0); NRBC Flagged by Analyzer 0 % (0-5); Platelet Count 264 K/mm3 (150-450); RBC Distribution Width CV 12.4 % (11.6-14.6); RBC Distribution Width SD 47.0 fl (35.1-43.9); Red Blood Count 2.82 M/mm3 (4.6-6.2); White Blood Count 8.3 K/mm3 (4.4-11.0)
[2025-01-22] MEDS: Nicotine (PBKC) 21 MG Patch TD (09:48)
[2025-01-22] MEDS: APIXABAN 2.5 MG TABLET (WCH) PO (09:48)
[2025-01-22 13:36] VITALS: BP 113/51; PULSE 92; RESP 15; TEMP 36.8; O2SAT 95
--- NOTE | 2025-01-22 13:45 | CASEMGMT ---
Addendum entered by Lissy Marquez 01/22/25 14:37: Received notification from admissions [facility] Rehab, pt has [facility] benefit. RN DALILA into pt room, pt has left the floor to the rehab unit. Addendum entered by Lissy Marquez 01/22/25 14:12: MIRA CONNER into pt room, pt sitting up in chair and just finished speaking with dry transfer man. Pt is aware that he will be trf'd to the [facility] Rehab unit today. Pt verbalizes understanding of this and is agreeable. Original Note: Pt may dc to [facility] Rehab unit today, dc order in. Updated pt nurse to call report.
--- NOTE | 2025-01-22 14:50 | CHAPLAIN ---
Type of Pastoral Visit _x__ Initial Visit ___ Follow-up Visit ___ On-call Visit ___ General Patient Visit ___ Spiritual Assessment ___ Family Conference ___ Bereavement ___ Rapid Response ___ Code Blue ___ Other (describe below) Pastoral Care Referral From _x__ Patient ___ Family ___ Nurse ___ Physician ___ Risk Assessment Analyst ___ Location Analyst ___ Other (describe below) Sacrament/Intervention _x__ Active listening ___ Anointing ___ Cheondoism ___ Bereavement ___ Communion ___ Reena exploration ___ ___ Life review ___ Prayer ___ Reconciliation ___ Sacrament of Sick _x__ Supportive presence ___ Wedding ___ Other (describe below) Pastoral Comments patient says I was expecting you and gives some minimal information on his status; pt is expecting to be moved to rehab today; pt says that he has pain and is unable to sleep but is thankful for the staff who are providing care to him; pt is asked about coping, feelings, needs but he is unable to articulate any of the concerns or thoughts he may have; pt says that he is just focused on the move to rehab now and that hopefully he can get some sleep too
== END 2025-01-22 14:10 | DRG 481 ==
LOC: ED 16:45 → MS3 17:21
PROVIDERS: Internal Medicine; Orthopaedic Surgery Sports Medicine; Admitting Provider Internal Medicine; Emergency Provider Emergency Medicine; Visit Provider Internal Medicine
PROC: 0QS706Z Reposition Left Upper Femur with Intramedullary Internal Fixation Device, Open Approach (ICD-10-PCS; principal; 2025-01-19 12:30)
DX: S72.142A Displaced intertrochanteric fracture of left femur, initial encounter for closed fracture (principal); E87.1 Hypo-osmolality and hyponatremia; E87.20 Acidosis, unspecified; D62 Acute posthemorrhagic anemia; F10.20 Alcohol dependence, uncomplicated; S05.02XA Injury of conjunctiva and corneal abrasion without foreign body, left eye, initial encounter; F17.200 Nicotine dependence, unspecified, uncomplicated; W19.XXXA Unspecified fall, initial encounter
CPT/HCPCS: 36415; 70450; 71045; 73502; 76000; 80048; 80053; 80076; 81001; 82550; 83605; 84443; 85025; 85610; 85730; 86850; 86900; 86901; 93005; 94668; 97110; 97116; 97162; 97166; 97530; 97535; 99285; 99406; C1776; A4216; J2405

== ENCOUNTER 2025-01-22 14:48 | Inpatient (IN) | payer MEDICARE, SELFPAY ==
[2025-01-22 15:12] VITALS: BP 113/54; PULSE 93; RESP 17; TEMP 36.9; O2SAT 97
[2025-01-22 16:09] VITALS: BMI 23.8
[2025-01-22 16:15] VITALS: O2SAT 97
[2025-01-22 17:57] VITALS: BP 121/68; PULSE 90; RESP 15; TEMP 37.2; O2SAT 98
[2025-01-22 21:05] VITALS: PULSE 90; RESP 15; O2SAT 98
[2025-01-22] MEDS: APIXABAN 2.5 MG TABLET (WCH) PO (21:13)
[2025-01-23 06:00] VITALS: BP 125/65; PULSE 79; RESP 16; TEMP 36.6; O2SAT 97
[2025-01-23 07:08] LABS: Hematocrit 26.1 % (40-54); Hemoglobin 9.2 g/dL (13.0-16.5); Immature Granulocytes Count 0.060 X10^3/uL (0.0-0.0); Mean Corp Hgb Conc 35.2 g/dL (32-36); Mean Corpuscular Volume 104.8 fL (80-94); Mean Platelet Vol. 8.5 fl (6.2-12.0); NRBC Flagged by Analyzer 0 % (0-5); Platelet Count 272 K/mm3 (150-450); RBC Distribution Width CV 12.7 % (11.6-14.6); RBC Distribution Width SD 48.3 fl (35.1-43.9); Red Blood Count 2.49 M/mm3 (4.6-6.2); White Blood Count 6.7 K/mm3 (4.4-11.0)
[2025-01-23 07:16] LABS: AST(SGOT) 27 U/L (<=37); Alanine Aminotransfer ALT/SGPT 20 U/L (<=46); Albumin, Serum 3.2 g/dL (3.4-4.8); Alkaline Phosphatase 38 U/L (40-129); Anion Gap 10 (5-15); BUN 10 mg/dL (4-19); BUN/Creat Ratio 18.0 RATIO (10-20); Calcium,Total 8.1 mg/dL (7.6-11.0); Carbon Dioxide 22.4 mmol/L (21.0-32.0); Chloride 105 mmol/L (98-108); Estimated Creatinine Clearance 94.13 ml/min (50-250); Globulin 3.2 g/dL (2.2-4.2); Glucose 90 mg/dL (70-99); Magnesium 2.1 mg/dL (1.5-2.2); Potassium 3.6 mmol/L (3.3-5.1)
--- NOTE | 2025-01-23 08:20 | HP.PCM_ITS ---
[facility] - General General Date of Admission: 01/22/25 Date of Service: 01/22/25 Chief Complaint: rehab for L hip fx HPI Narrative SHAILA VALENTINO, is a 69 M who presents to the inpatient rehab unit on 01/22/25 for physical rehab, following a left hip fracture and ORIF on 01/19/2025. Patient was walking his son's great [place] when he was pulled down, resulting in hip fracture. He states that he stayed down for approximately 2 hours and had to crawl to his home and contact his daughter to come help him. He was then taken to the emergency department and found to have a left hip fracture. Patient is currently retired and states that he had multiple different jobs in his lifetime. I did note him to have twitching to his left eye, per documentation he did have a corneal abrasion which was treated in the inpatient side. 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 Patient is a pack-a-day smoker and states that he drinks 7 beers per day. He is interested in stopping smoking and is requesting nicotine patches at discharge. He does not express interest in discontinuing drinking, at this time. On assessment the patient is an alert and oriented x 3. He states that he utilizes no assistive devices at home on a normal basis but he does state that he has a walker and a cane at home, if needed. He does have some swelling to the left knee but there is no erythema or pain reported. He currently denies pain while sitting in the chair but endorses having pain when he is up and walking. He does feel that his current pain regimen is working for him with the utilization of oxycodone as needed. We also discussed his oral consumption which she states that on a normal basis he only eats 1 meal a day. He states that he does not eat junk food. We did discuss extensively the need for protein for healing in which he states that he will try to pick at least 1 protein item off of his each meal. He denies any significant medical history although states that he does have history of his heart skipping a beat. And acknowledges that this has been a lifelong problem for him but he does not seek medical attention for it nor does he receive any medications. All questions the patient had were answered. [facility] Medical History Amputation finger Home Medications ?Medication ?Instructions ?Recorded ?Last Taken ?Type acetaminophen 500 mg tablet 1,000 mg (2 x 500 mg) PO Q 8 pain 01/22/25 01/22/25 Rx #0 tabs apixaban 5 mg tablet (Eliquis) 2.5 mg (1/2 x 5 mg) PO Q12 blood 01/22/25 01/22/25 Rx thinner #0 tabs erythromycin 5 mg/gram (0.5 %) eye 1 applic LEFT EYE T ID Antibiotic 01/22/25 Unknown Rx ointment #0 grams folic acid 1 mg tablet 1 mg PO BREAKFAST supplement #0 01/22/25 01/22/25 Rx tabs melatonin 10 mg disintegrating 5 mg PO QHS PRN PRN Ins omnia 01/22/25 Unknown History tablet nicotine 21 mg/24 hr daily 21 mg transdermal DAILY lea otine 01/22/25 01/22/25 Rx transdermal patch #0 ea oxycodone 5 mg tablet 5 mg PO Q4H PRN PRN Pain Sco re 01/22/25 01/22/25 Rx 4-10 #0 tabs sennosides 8.6 mg-docusate sodium 2 tab PO BID stool s oftner #0 tabs 01/22/25 Unknown Rx 50 mg tablet (Stimulant Laxative Plus) Allergy/AdvReac Type Severity Reaction Status Date / Time latex Allergy Itching Verified 01/18/25 14:16 Penicillins Allergy Hives Verified 01/18/25 14:16 Social History Smoking Status: Heavy Smoker (>10/day) alcohol intake: current alcohol intake frequency: 3 or more drinks per day ROS Constitutional Constitutional: Reports as per HPI Eyes Eyes: Reports tearing and other Details: He does have history of nerve damage to the left eye. He does have significant twitching of that left eye. ENT HEENT: Reports systems reviewed and no addt'l complaints, except as documented Cardiovascular Cardiovascular: Reports other Details: History of heart skipping a beat. Respiratory/Chest Respiratory/Chest: Reports systems reviewed and no addt'l complaints, except as documented Gastrointestinal Gastrointestinal: Reports systems reviewed and no addt'l complaints, except as documented Genitourinary Genitourinary: Reports systems reviewed and no addt'l complaints, except as documented Musculoskeletal Musculoskeletal: Reports difficulty walking, extremity pain and other Details: L hip fx with ORIF on 01/19. Integumentary Integumentary: Reports systems reviewed and no addt'l complaints, except as documented Neurologic Neurologic: Reports systems reviewed and no addt'l complaints, except as documented and as per HPI Psychiatric Psychiatric: Reports systems reviewed and no addt'l complaints, except as documented Endocrine Endocrinology: Reports systems reviewed and no addt'l complaints, except as documented Hematologic/Lymphatic Hematologic/Lymphatic: Reports systems reviewed and no addt'l complaints, except as documented Allergic/Immunologic Allergic/Immunologic: Reports systems reviewed and no addt'l complaints, except as documented Vital Signs Vital Signs Vital Signs: 01/22/25 15:12 01/22/25 16:15 01/22/25 17:57 Temperature 98.4 F 98.9 F Temperature Source Temporal Temporal Pulse Rate 93 90 Respiratory Rate 17 15 Respiratory Effort Normal Non-Labored Respiratory Depth Normal Respiratory Pattern Normal Blood Pressure 113/54 L 121/68 H Blood Pressure Mean 73 85 Blood Pressure Source Monitor Monitor Blood Pressure Position Semi-Fowlers Semi-Fowlers Blood Pressure Location Left Arm Left Arm Pulse Ox 97 97 98 Oxygen Delivery Method Room Air Room Air Room Air 01/22/25 21:05 01/23/25 06:00 01/23/25 07:32 Temperature 97.8 F Temperature Source Temporal Pulse Rate 90 79 Respiratory Rate 15 16 Respiratory Effort Normal Non-Labored Respiratory Depth Normal Respiratory Pattern Normal Blood Pressure 125/65 H Blood Pressure Mean 85 Blood Pressure Source Monitor Blood Pressure Position Semi-Fowlers Blood Pressure Location Right Arm Pulse Ox 98 97 Oxygen Delivery Method Room Air Room Air Room Air Weight Weight: 171 lb 6 oz Body Mass Index (BMI) 23.8 Physical Exam Const alert, oriented x3, no apparent distress and average body habitus General Appearance: cooperative, disheveled and other Patient was disheveled on arrival to unit. He did work with OT on ADLs. Orientation / Consciousness: awake and other HEENT normocephalic Head and Scalp: normal to inspection Face and Sinus: other bulbous nose Nose: external nose abnormal nasal erythema (hx, most likely related to alcohol consumption.) External Ear: external ears normal Eyes Eyes Narrative: Nerve damage to left eye. Neck full ROM Lymph Lymphatic: no lymphadenopathy noted Chest inspection of chest normal Chest: symmetrical chest wall rise Resp normal respiratory effort, normal air movement, no retractions and no use of accessory muscles Effort and Inspection: able to speak in complete sentences Auscultation: clear to auscultation bilaterally Cardio regular rate and regular rhythm Heart Sounds: S1 normal and S2 normal Peripheral Pulses: pulses 2+ throughout GI normal to inspection, nondistended, normoactive bowel sounds Auscultation: normoactive bowel sounds Palpation: soft Back/Spine no CVA tenderness Extremity Extremity Narrative: Patient has mild swelling to the left knee. Most likely related to previous hip fracture and ORIF. General Extremity: amputation and other findings Other Details: finger, previous Peripheral Pulses: Yes pulses 2+ throughout Right Lower Extremity: hip joint inspection (Healing surgical incision to the left hip. No erythema or purulent drainage. Well-approximated.) and knee joint Skin Skin Narrative: Bruising noted to the left lower extremity. Neuro oriented x3 Sensorium / Orientation: awake, alert, oriented to person, oriented to place and oriented to time Speech: speech normal Psych mental status grossly normal Appearance: disheveled and other Patient was disheveled on arrival to the unit. He has since been cleaned up and is well-kempt. Attitude: calm and engaged Activity / Motor Behavior: appropriate eye contact Speech: normal speech Memory / Cognition: other He does have some distant memory loss. Most likely related to alcohol consumption Results Medical Records Data Attestation: I reviewed the patient's medical records Lab / Micro Data Attestation: I reviewed the patient's lab results. Lab results narrative: Appears that the patient does have some chronic anemia. This could be a result of chronic alcohol consumption. Hyponatremia has resolved. 01/23/25 06:21 01/23/25 06:21 Labs: Laboratory Results - last 24 hr 01/23/25 06:21: WBC 6.7, RBC 2.49 L, Hgb 9.2 L, Hct 26.1 L, MCV 104.8 H, MCH 36.9 H, MCHC 35.2, RDW Std Deviation 48.3 H, RDW Coeff of Robinson 12.7, Plt Count 272, MPV 8.5, Immature Gran % (Auto) 0.900, Neut % (Auto) 64.9, Lymph % (Auto) 20.6, [place] % (Auto) 10.4 H, Eos % (Auto) 2.3, Baso % (Auto) 0.9, Absolute Neuts (auto) 4.3, Absolute Lymphs (auto) 1.37, Nucleated RBC % 0, Sodium 137, Potassium 3.6, Chloride 105, Carbon Dioxide 22.4, Anion Gap 10, BUN 10, C reatinine 0.53 L, Estim Creat Clear Calc 94.13, Est GFR (MDRD) Non-Af 109, BUN/Creatinine Ratio 18.0, Glucose 90, Calcium 8.1, Phosphorus 3.2, Magnesium 2.1, Total Bilirubin 1.07, AST 27, ALT 20, Alkaline Phosphatase 38 L, Total Protein 6.4, Albumin 3.2 L, Globulin 3.2, Albumin/Globulin Ratio 1.0 Assessment & Plan Assessment/Plan (1) Physical debility: PLAN: *Continue with therapies. (2) Closed intertrochanteric fracture of left femur: QUALIFIERS: Encounter type: subsequent encounter Fracture healing: with routine healing PLAN: * Eliquis 2.5mg PO q 12h *Acetaminophen 1000 mg p.o. every 8 hours scheduled *Oxycodone 5mg PO PRN q4 *Senna/Docusate Na+, PO 2 tablets , bid (3) Fall from slip, trip, or stumble: QUALIFIERS: Encounter type: subsequent encounter Qualified Code(s): W01.0XXD - Fall on same level from slipping, tripping and stumbling without subsequent striking against object, subsequent encounter PLAN: *as above *Fall precautions (4) Alcohol dependence: QUALIFIERS: Complication of substance-induced condition: u ncomplicated PLAN: *Alcohol consumption counseling *Folic acid 1 mg p.o. with breakfast *BMP every 3 days (5) Tobacco use: PLAN: *Nicotine patch 21 mg Q day *Smoking cessation education. *Patient is requesting NicoDerm patches at discharge to assist with smoking cessation. Charges/Coding Visit Charges Inpatient E&M: 37840 Init Hosp L2
[2025-01-23] MEDS: APIXABAN 2.5 MG TABLET (WCH) PO ×2 (08:38→20:45)
[2025-01-23] MEDS: Nicotine (PBKC) 21 MG Patch TD (08:38)
--- NOTE | 2025-01-23 09:23 | REHABEVAL_ITS ---
Admission Information Primary Diagnosis:: Debility related to left intertrochanter fracture with ORIF of Status Changes from Prescreening?: No changes Identified Actual Problem List:: Falls, Skin Intergrity, Pain, ALteration in Cmfrt, Mobility Impaired and Self Care Deficit Potential Problem List:: DVT, Infection, Falls and Skin Integrity Risk of Complications DVT: LMWH and - (Eliquis 2.5 mg p.o. twice daily 5) Bleeding: Monitor Lab Values, Nursing to Teach Precautions for anti-coagulation therapy. and Wound, if applicable, to be assessed every shift. Infection: Clinical Staff to Monitor for S/S of infection: Falls: Patient will be evaluated for Fall Precautions Skin Breakdown: Nursing will assess skin daily using assessment tool. Pain: Clinical staff will assess patient's pain level per protocol. Plan of Care Patient requires physician specializing in physical medicine and rehab oversight to provide close medical supervision of rehab issues including: Pain Management, Bowel and Bladder, DVT prophylaxis, Rehabilitation Leadership and Coordination of treatment team Patient needs Physical Therapy: At least 5 out of 7 days Patient needs Physical Therapy to improve:: Mobility, Strengthening, ROM, Endurance, Stairs, Gait and Balance Patient needs Occupational Therapy: At least 5 out of 7 days Patient needs Occupational Therapy to improve ADL's incl.: Bathing, Dressing, Household tasks, Adaptive Equipment, Splinting and Other activities as determined Patient requires 24/ Rehabilitation Nursing for: Pain Issues, Identifying and preventing risk factors, Assisting with ambulation, transfer, and all ADL's, Providing safe environment, Skin integrity and Medication Management Patient needs Operating System Designer/ Case Management for: Discharge Planning Patient needs Dietary and Nutrition Services for: Adequate Nutrition and Nutritional Education Goals Goals Patient will remain: free from falls Patient will perform bed mobility at: Standby Assist. Patient will complete transfers from bed to chair at: Standby Assist. Patient will ambulate: 100 feet and with standby assist Patient will complete upper body dressing at: Standby Assist. Patient will complete lower body dressing at: Standby Assist. Patient will complete toilet transfer at: Standby Assist. Patient will complete toileting at: Standby Assist. Patient will perform bathing at: Standby Assist. Patient will perform Tub/Shower transfer at: Standby Assist. Patient will complete grooming at: Standby Assist. Patient will complete home management skills at: Standby Assist. Patient will achieve: with standby assist Patient will have pain level of: of 3 or less Patient's skin will: free from infection. Patient will receive: adequate nutrition. Discharge Planning Pt Prognosis for Sig. Practical Improv. w/in Reasonable Time: Good Anticipated D/C Destination: Home Was Preadmission Assessment Accurate?: Yes
--- NOTE | 2025-01-23 15:37 | CASEMGMT ---
Social Work Assessment- SW met with pt to complete initial assessment. SW introduced self and role; pt agreeable to meeting. SW verified/updated contacts. Pt reports being independent at baseline; does not have a PCP because if your horse isn't sick why would you take him to the vet?. Pt pleasant and cooperative; reports that he likes to make people laugh. Pt?s goal is to return home at prior level of function. Pt reports that he can't say if he would be open to HHC or OP therapy at discharge if needed. Pt scored 0/2 on PHQ9 and 15/15 on BIMS. Pt denies any resources for ETOH use at this time. SW will continue to follow for DC planning. COCO Castro
--- NOTE | 2025-01-23 17:42 | PCM.PN.BLA ---
Progress Note The pt was seen and examined independently of the SACHIN. I reviewed her documentation and agree with her evaluation of the pt. I reviewed all documentation in the EMR from recent admission for fx of the L hip including lab reports, imaging and notes. Vincent is a 69-year-old male who was walking a large dog when he was pulled down to the ground. This resulted in a left hip fracture. He was seen by 's Dr. Espinoza from orthopedics and on 01/19/2025 underwent a left hip open reduction internal fixation. He drinks 7 beers a day and during his stay in the hospital he was placed on a CIWA protocol. He had no ETOH withdrawal sx. Sodium at admission to the hospital was 127.....I suspect due to beer potomania. Sodium is normal today. He was placed on a nicotine patch and it is helping with cravings and he is considering stopping smoking. He lives alone in a [place] house. There is a basement and the [facility] is located there. He tells me that he slept well last night and his pain is adequately controlled. He has a hx of VTE in the past after a very long surgery to reattach fingers on the left hand that were torn off in a trash compactor. He is currently on apixaban 2.5 mg twice daily for DVT prophylaxis. He is alert and appropriate and does not appear in any distress. Though process is normal. He has blepharospasm of the Left eye.......this developed after he had metal in his eye and he was told there was permanent nerve damage. The blepharospasm is worse since the fall than it usually is. He has not seen an electric container tester in many years. Mucous membranes are dry. Lungs have good air exchange and they are clear to auscultation. He is not tachypneic and he has no conversational dyspnea. Heart-regular rate and rhythm, no gallop Abdomen-soft, nontender, nondistended, no guarding with palpation He has some healing abrasions that have scabs on them on his extremities. He also has some areas of ecchymosis. He has pitting edema of the left lower extremity but denies calf tenderness. All lab from today was personally reviewed. Hemoglobin today is 9.2 which is down from 13.5 at admission to the hospital. It is currently stable. Platelets are within normal limits. Sodium is 137 and the potassium is 3.6. The BUN is 10 with a creatinine of 0.53. Calcium, phosphorus and magnesium are all within normal limits. LFTs are unremarkable. There were ketones in the urine at admission to the hospital. Urine had 2+ bacteria but no white blood cells. PT and PTT were within normal limits. Chest x-ray at admission was unremarkable. Impressions 1. S/P traumatic L hip fx. 2. Acute blood loss anemia 3. Hyponatremia secondary to beer Poto finesse-resolved 4. Tobacco dependence-he was counseled about smoking cessation and he is considering this. The nicotine patch is certainly helping his cravings. 5. Chronic daily alcohol use/abuse 6. 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 I agree with the inpressions and plan of the SACHIN with no exceptions.
[2025-01-23 17:45] VITALS: BP 103/54; PULSE 86; RESP 16; TEMP 36.8; O2SAT 97
[2025-01-23] MEDS: MELATONIN 10 MG TABLET 5 MG PO (20:45)
[2025-01-24 06:00] VITALS: BP 99/60; PULSE 88; RESP 18; TEMP 36.8; O2SAT 98
[2025-01-24] MEDS: Nicotine (PBKC) 21 MG Patch TD (08:10)
[2025-01-24] MEDS: APIXABAN 2.5 MG TABLET (WCH) PO ×2 (08:10→21:49)
[2025-01-24] MEDS: Senna/Docusate Sodium 1 Tablet 2 TABLET PO ×2 (08:10→21:49)
[2025-01-24 16:24] VITALS: BP 100/57; PULSE 96; RESP 14; TEMP 36.7; O2SAT 96
[2025-01-25 06:00] VITALS: BP 111/61; PULSE 86; RESP 17; TEMP 36.8; O2SAT 97
[2025-01-25] MEDS: Nicotine (PBKC) 21 MG Patch TD (08:07)
[2025-01-25] MEDS: APIXABAN 2.5 MG TABLET (WCH) PO ×2 (08:08→21:42)
[2025-01-25] MEDS: Senna/Docusate Sodium 1 Tablet 2 TABLET PO ×2 (08:08→21:42)
[2025-01-25 17:50] VITALS: BP 117/65; PULSE 87; RESP 16; TEMP 36.8; O2SAT 96
[2025-01-25 21:45] VITALS: BP 115/52; PULSE 94; RESP 16; TEMP 37.1; O2SAT 95
[2025-01-26 06:00] VITALS: BP 133/73; PULSE 92; RESP 16; TEMP 36.4; O2SAT 97
[2025-01-26] MEDS: Senna/Docusate Sodium 1 Tablet 2 TABLET PO (07:51)
[2025-01-26] MEDS: Nicotine (PBKC) 21 MG Patch TD (07:52)
[2025-01-26] MEDS: APIXABAN 2.5 MG TABLET (WCH) PO ×2 (07:52→20:52)
--- NOTE | 2025-01-26 08:51 | PCM.PROGNOTE ---
Documented by User: SAYRA Briseno 01/26/25 09:23 Subjective Subjective Prior to meeting wit Vincent in his room, I reviewed documentation and labs from the weekend. I then met with Vincent in his room. He is sitting up in a bedside recliner with legs dangling. He is dozing upon entry. He is, admittedly, grumpy today. He states that he did not sleep last night related to pain. I had an extensive discussion with him about his pain and how best to control it. I did indicate to him the importance staying on top of his pain, rather than letting it get out of control. I recommended scheduling his oxy in the AM and in the PM to assist with pain management. Pt is agreeable and it has been scheduled. We also discussed scheduling his melatonin to assist with sleep. He is agreeable to that as well. During the assessment, I did note him to have LLE swelling, 4+ pitting. LLE doppler ordered to rule out DVT. I also recommended that he elevate his legs when not ambulating and sitting in the recliner We also discussed and I provided education about the importance of utilizing his IS when sitting in the recliner, 10 times per hour. Particularly because he is a daily smoker. All questions were answered. Objective Data Objective Data ROS reviewed as documented in Subjective charting Vital Signs: Vital Signs Temp Pulse Resp BP Pulse Ox O2 Del Method 97.5 F L 92 16 133/73 H 97 Room Air 01/26/25 06:00 01/26/25 06:00 01/26/25 06:00 01/26/25 06:00 01/26/25 06:00 01/26/25 06:00 Oxygen Delivery Method Room Air Weight: 171 lb 5.986 oz Body Mass Index (BMI) 23.8 Intake & Output: Intake and Output for Last 24 Hours 01/24/25 01/25/25 01/26/25 23:59 23:59 23:59 Intake Total 1030 / 1330 1220 / 1220 540 / 540 Output Total 750 / 750 870 / 870 250 / 250 Balance 280 / 580 350 / 350 290 / 290 Lab / Micro Data Attestation: I reviewed the patient's lab results. Lab results narrative: Labs from Sunday01/23/25 01/23/25 06:21 01/23/25 06:21 Physical Exam Const alert and oriented x3 General Appearance: cooperative Orientation / Consciousness: awake and other HEENT normocephalic Eyes Eyes Narrative: L eye nerve damage with twitch Neck full ROM General: trachea midline Lymph Lymphatic: no lymphadenopathy noted Chest inspection of chest normal Chest: symmetrical chest wall rise Resp normal respiratory effort Effort and Inspection: able to speak in complete sentences Auscultation: diminished lung sounds Cardio regular rate Heart Sounds: S1 normal and S2 normal Peripheral Pulses: pulses 2+ throughout GI normal to inspection, nondistended, normoactive bowel sounds Auscultation: normoactive bowel sounds Palpation: soft Back/Spine no CVA tenderness Extremity Extremity Narrative: LLE edema. No erythema General Extremity: amputation and other findings Other Details: finger, previous Right Lower Extremity: hip joint inspection (Healing surgical incision to the left hip. No erythema or purulent drainage. Well-approximated.) and knee joint Skin Skin Narrative: Bruising noted to the left lower extremity. General Skin Exam: no breakdown Neuro no focal motor deficits and no sensory deficits noted Sensorium / Orientation: awake, alert, oriented to person, oriented to place and oriented to time Speech: speech normal Psych thought process normal, cooperative and affect normal Appearance: disheveled and other Patient was disheveled on arrival to the unit. He has since been cleaned up and is well-kempt. Attitude: calm and engaged Activity / Motor Behavior: appropriate eye contact Speech: normal speech Memory / Cognition: other He does have some distant memory loss. Most likely related to alcohol consumption Assessment & Plan Assessment/Plan (1) Physical debility: PLAN: *Continue with therapies. (2) Closed intertrochanteric fracture of left femur: QUALIFIERS: Encounter type: subsequent encounter Fracture healing: with routine healing PLAN: * Eliquis 2.5mg PO q 12h *Acetaminophen 1000 mg p.o. every 8 hours scheduled *Oxycodone 5mg PO PRN q4 *Oxyodone 5mg PO KIERRA 0700, 2100 *Senna/Docusate Na+, PO 2 tablets , bid (3) Fall from slip, trip, or stumble: QUALIFIERS: Encounter type: subsequent encounter Qualified Code(s): W01.0XXD - Fall on same level from slipping, tripping and stumbling without subsequent striking against object, subsequent encounter PLAN: *as above *Fall precautions (4) Alcohol dependence: QUALIFIERS: Complication of substance-induced condition: uncomplicated PLAN: *Alcohol consumption counseling *Folic acid 1 mg p.o. with breakfast *BMP every 3 days (5) Tobacco use: PLAN: *Nicotine patch 21 mg Q day *Smoking cessation education. *Patient is requesting NicoDerm patches at discharge to assist with smoking cessation. (6) Edema leg: PLAN: *elevate extremity when not ambulating *LLE doppler to RO DVT Charges/Coding Visit Charges Inpatient E&M: 35368 Subs Hosp L2 Documented by User: Dr. Avril Zapata DO 01/26/25 12:28 Objective Data Lab / Micro Data 01/23/25 06:21 01/23/25 06:21 Assessment & Plan Assessment/Plan (1) Physical debility: (2) Closed intertrochanteric fracture of left femur: QUALIFIERS: Encounter type: subsequent encounter Fracture healing: with routine healing (3) Fall from slip, trip, or stumble: QUALIFIERS: Encounter type: subsequent encounter Qualified Code(s): W01.0XXD - Fall on same level from slipping, tripping and stumbling without subsequent striking against object, subsequent encounter (4) Alcohol dependence: QUALIFIERS: Complication of substance-induced condition: uncomplicated (5) Tobacco use: (6) Edema leg: PLAN: Plan The pt was seen and examined today independently of SACHIN. the incision is intact with no dehiscence. There is no isael-incisional erythema. There is a small amount of yellow serous drainage with no odor. No purulent drainage. Still with a lot of swelling around the incision. Venous ultrasound of the left lower extremity was negative for VTE. ANGELITA hose have been applied.
--- NOTE | 2025-01-26 08:52 | VDLE_ITS ---
Reason For Study Reason For Study: Left leg swelling RIGHT LEFT CFV is compressible, spontaneous, phasic, competent GSV is normal. and demonstrates normal augmentation. CFV is compressible, spontaneous, phasic, competent, Procedure and demonstrates normal augmentation. This is a venous duplex using B-mode, color flow and FV is compressible, spontaneous, phasic, competent spectral Doppler. and demonstrates normal augmentation. Exam performed portable in patient room. POP V is compressible, spontaneous, phasic, competent A preliminary report was called and/or faxed to and demonstrates normal augmentation. Sementi. T/P Trunk is compressible. PTV is compressible. LT PerV is compressible. Peroneal V not well visualized due to patient positioning. VL/Venous Duplex US, Unilateral Interpretation Summary Deep veins of the left lower extremity are patent and compressible segmentally. There is no evidence of left lower extremity deep vein thrombosis. Valvular competence appears intact within the p roximal deep venous system on the left . The left great saphenous vein appears patent and compressible segmentally. The right common femoral vein is patent and compressible . The left peroneal vein was not well visualized. Ordering Physician: Yesenia Littlejohn Referring Physician: [facility] Performed By: Nunu Snider RVT
--- NOTE | 2025-01-26 13:13 | CASEMGMT ---
Social Work IDT met with patient for Team meeting. Discussed patient's progress in PT/OT/SN/MD. Educated to Medicare approval of 11 days. Pt and IDT set DC for Thursday 02/01. Pt is progressing well and no concerns for DC home alone. SW offered HHC vs OP therapy and DME needs. Pt stated he cannot have HHC because he does not have a PCP. SW confirmed a PCP will need established and follow HHC orders, though regardless, pt will need to establish with a PCP. SW provided Healthcare Provider Directory, but noted it does not have [facility] resources. Pt does want to remain in [place]. SW to provide resources for area providers, along HHC and OP therapy options. Pt stated he will speak with dtr on preferences. Pt is not going to be able to drive after DC. SW offered to refer to [place] [facility] to assist with transportation and pt agreed. SW to complete. - SW returned with HHC and OP therapy resources within geographical area, INN with insurance, that include quality and resource data via [employer] guide. PCP list using [employer]. Doris Garcia MSW DIRECTOR OF PHYSICAL EDUCATION
[2025-01-26 18:00] VITALS: BP 100/49; PULSE 85; RESP 16; TEMP 36.9; O2SAT 98
[2025-01-26 19:48] VITALS: PULSE 85; RESP 16; O2SAT 98
[2025-01-26] MEDS: MELATONIN 10 MG TABLET 5 MG PO (20:53)
[2025-01-27 06:00] VITALS: BP 126/62; PULSE 89; RESP 16; TEMP 36.8; O2SAT 98
[2025-01-27] MEDS: Nicotine (PBKC) 21 MG Patch TD (07:49)
[2025-01-27] MEDS: APIXABAN 2.5 MG TABLET (WCH) PO ×2 (07:49→21:01)
--- NOTE | 2025-01-27 09:14 | PN_ITS ---
Subjective Subjective Afebrile Vital signs stable and blood pressure is within normal limits. Per nursing he got Melatonin and Oxycodone 5 mg at HS and at 0130 he was asking for something to help him sleep. He got a PRN dose of Oxy 5 mg at 0130. In total he only had 2 doses of Oxycodone yesterday 1 PRN dose in the AM and the scheduled 5 mg at HS. Vincent tells me that when he is not doing therapy he does not have pain. He usually sleeps on his side and he can not get comfortable in bed because his movement is restricted due to pain in the Left hip and not being able to lay on that side. He does not normally have trouble sleeping at home and usually goes to bed around 9 PM. Denies CP, SOB, cough, dysuria and calf pain. Venous US was negative for DVT and the valves appeared competent. Objective Data Objective Data Vital Signs: Vital Signs Temp Pulse Resp BP Pulse Ox O2 Del Method 98.2 F 89 16 126/62 H 98 Room Air 01/27/25 06:00 01/27/25 06:00 01/27/25 06:00 01/27/25 06:00 01/27/25 06:00 01/27/25 06:00 Oxygen Delivery Method Room Air Weight: 171 lb 5.986 oz Body Mass Index (BMI) 23.8 Intake & Output: Intake and Output for Last 24 Hours 01/25/25 01/26/25 01/27/25 23:59 23:59 23:59 Intake Total 1220 / 1220 1200 / 1200 560 / 560 Output Total 870 / 870 900 / 900 450 / 450 Balance 350 / 350 300 / 300 110 / 110 Lab / Micro Data 01/23/25 06:21 01/23/25 06:21 Radiography Diagnostic Testing: Radiology Impression Venous Doppler Study 01/26/25 08:52 Interpretation Summary Deep veins of the left lower extremity are patent and compressible segmentally. There is no evidence of left lower extremity deep vein thrombosis. Valvular competence appears intact within the proximal deep venous system on the left . The left great saphenous vein appears patent and compressible segmentally. The right common femoral vein is patent and compressible . The left peroneal vein was not well visualized. Ordering Physician: Yesenia Littlejohn Referring Physician: [facility] Performed By: Nunu Snider RVT Physical Exam Const alert, oriented x3 and no apparent distress Constitutional Narrative: sitting in the recliner at the bedside. Appropriate. General Appearance: cooperative HEENT HEENT Narrative: Left eye twitches more when he is anxious Resp clear to auscultation bilaterally Cardio regular rate and regular rhythm GI normal to inspection, nondistended, normoactive bowel sounds, soft to palpation and non-tender GI Narrative: Having regular BM's. Extremity Extremity Narrative: LE edema is much improved today with ANGELITA hose that were applied yesterday. Skin General Skin Exam: no breakdown Rashes: no rashes Psych thought process normal, cooperative and affect normal Assessment & Plan Assessment/Plan (1) Physical debility: (2) Closed intertrochanteric fracture of left femur: QUALIFIERS: Encounter type: subsequent encounter Fracture healing: with routine healing (3) Fall from slip, trip, or stumble: QUALIFIERS: Encounter type: subsequent encounter Qualified Code(s): W01.0XXD - Fall on same level from slipping, tripping and stumbling without subsequent striking against object, subsequent encounter (4) Alcohol dependence: QUALIFIERS: Complication of substance-induced condition: u ncomplicated (5) Tobacco use: PLAN: *Nicotine patch 21 mg Q day *Smoking cessation education. *Patient is requesting NicoDerm patches at discharge to assist with smoking cessation. (6) Edema leg: PLAN: *elevate extremity when not ambulating *LLE doppler negative for DVT. Edema due to venous insuifficiency/recent fx and ORIF of the left hip. Much improved with ANGELITA hose. (7) Insomnia: QUALIFIERS: Insomnia type: unspecified Qualified Code(s): G47.00 - Insomnia, unspecified PLAN: Plan 1. Continue therapy 2. Continue 5 mg of oxycodone at 7 AM daily but increase nightly oxycodone to 10 mg. 3. Add Ambien 5 mg nightly as needed insomnia 4. Continue ANGELITA hose -okay to remove at night when he is in bed. Charges/Coding Visit Charges Inpatient E&M: 89376 Init Hosp L1
[2025-01-27 18:00] VITALS: BP 107/61; PULSE 88; RESP 17; TEMP 37.2; O2SAT 99
[2025-01-27 20:45] VITALS: PULSE 88; RESP 16; O2SAT 97
[2025-01-27] MEDS: MELATONIN 10 MG TABLET 5 MG PO (21:02)
[2025-01-28 05:48] VITALS: BMI 23.3
[2025-01-28 05:50] VITALS: BP 125/66; PULSE 84; RESP 16; TEMP 36.9; O2SAT 93
[2025-01-28] MEDS: APIXABAN 2.5 MG TABLET (WCH) PO ×2 (07:56→21:14)
[2025-01-28] MEDS: Nicotine (PBKC) 21 MG Patch TD (07:57)
--- NOTE | 2025-01-28 14:22 | CASEMGMT ---
Social Work SW spoke with pt at bedside to follow up on DC plans. Confirmed DC home 02/01. Revisited PCP choice, HHC or OP therapy at DC. Pt did not review the lists or has any decisions. SW explained HHC would start after PCP visit and OP would need assistance with transportation. Pt expressed understanding. SW requested pt review lists and make choices and this worker will follow up with pt tomorrow. Pt agreed. Doris Garcia BRAKE LINING MAKER PYROTECHNIST
[2025-01-28 17:27] VITALS: BP 99/52; PULSE 86; RESP 16; TEMP 37.1; O2SAT 97
[2025-01-28 21:00] VITALS: PULSE 86; RESP 16; O2SAT 97
[2025-01-28] MEDS: MELATONIN 10 MG TABLET 5 MG PO (21:14)
[2025-01-29 06:00] VITALS: BP 145/82; PULSE 79; RESP 16; TEMP 37.1; O2SAT 98
[2025-01-29] MEDS: Nicotine (PBKC) 21 MG Patch TD (07:47)
[2025-01-29] MEDS: APIXABAN 2.5 MG TABLET (WCH) PO ×2 (07:47→21:14)
--- NOTE | 2025-01-29 10:36 | PN_ITS ---
Documented by User: SAYRA Briseno 01/29/25 11:13 Subjective Subjective 01/29/25: I met with Vincent in his room. He is sitting in a bedside recliner. He has been working well with PT/OT. We had an extensive discussion about preventative care and the improtance of establishing with a primary care and going to appointments for yearly checkups. [facility]. He states that his pain has been much better since his HS dose of Oxy has been increased to 10mg. He did state that he falls asleep ok but has trouble staying asleep. I did increase his melatonin to 10mg. We also discussed some deep breathing exercises. He also has Ambien available to him, if needed. Lastly, I did assess the sweling in his LLE. He does have ANGELITA hose in place. Although he continues to have swelling at the knee, it has improved since last assessment. All questions were answered. Plan for pt to dc on Sunday, Objective Data Objective Data ROS as per HPI Vital Signs: Vital Signs Temp Pulse Resp BP Pulse Ox O2 Del Method 98.7 F 79 16 145/82 H 98 Room Air 01/29/25 06:00 01/29/25 06:00 01/29/25 06:00 01/29/25 06:00 01/29/25 06:00 01/29/25 06:00 Oxygen Delivery Method Room Air Weight: 166 lb 14.239 oz Body Mass Index (BMI) 23.3 Intake & Output: Intake and Output for Last 24 Hours 01/27/25 01/28/25 01/29/25 23:59 23:59 23:59 Intake Total 1950 / 1950 1250 / 1250 360 / 360 Output Total 1270 / 1270 400 / 400 200 / 200 Balance 680 / 680 850 / 850 160 / 160 Lab / Micro Data Attestation: I reviewed the patient's lab results. (from 01/23/25 as last drawn ) 01/31/25 06:42 01/31/25 06:42 Physical Exam Const alert, oriented x3, no apparent distress and average body habitus General Appearance: cooperative Orientation / Consciousness: awake HEENT normocephalic Eyes Eyes Narrative: L eye nerve damage with twitch Neck full ROM General: trachea midline Lymph Lymphatic: no lymphadenopathy noted Chest inspection of chest normal Chest: symmetrical chest wall rise Resp normal respiratory effort, normal air movement, no retractions and no use of accessory muscles Effort and Inspection: able to speak in complete sentences Auscultation: clear to auscultation bilaterally and diminished lung sounds Cardio regular rate and regular rhythm Heart Sounds: S1 normal and S2 normal Peripheral Pulses: pulses 2+ throughout GI normal to inspection, nondistended, normoactive bowel sounds Auscultation: normoactive bowel sounds Palpation: soft Back/Spine no CVA tenderness Extremity Extremity Narrative: LLE edema. No erythema General Extremity: amputation and other findings Other Details: finger, previous Right Lower Extremity: hip joint inspection (Healing surgical incision to the left hip. No erythema or purulent drainage. Well-approximated.) and knee joint Skin Skin Narrative: Bruising noted to the left lower extremity. General Skin Exam: no breakdown Neuro oriented x3, no focal motor deficits and no sensory deficits noted Sensorium / Orientation: awake, alert, oriented to person, oriented to place and oriented to time Speech: speech normal Psych mental status grossly normal, thought process normal, cooperative and affect normal Attitude: calm and engaged Activity / Motor Behavior: appropriate eye contact Speech: normal speech Memory / Cognition: other He does have some distant memory loss. Most likely related to alcohol consumption Assessment & Plan Assessment/Plan (1) Physical debility: PLAN: *Continue with therapies. (2) Closed intertrochanteric fracture of left femur: QUALIFIERS: Encounter type: subsequent encounter Fracture healing: with routine healing PLAN: * Eliquis 2.5mg PO q 12h *Acetaminophen 1000 mg p.o. every 8 hours scheduled *Oxycodone 5mg PO PRN q4 *Oxyodone 5mg PO KIERRA 0700, 2100 *Senna/Docusate Na+, PO 2 tablets , bid (3) Fall from slip, trip, or stumble: QUALIFIERS: Encounter type: subsequent encounter Qualified Code(s): W01.0XXD - Fall on same level from slipping, tripping and stumbling without subsequent striking against object, subsequent encounter PLAN: *as above *Fall precautions (4) Alcohol dependence: QUALIFIERS: Complication of substance-induced condition: u ncomplicated PLAN: *Alcohol consumption counseling *Folic acid 1 mg p.o. with breakfast *BMP every 3 days (5) Tobacco use: PLAN: *Nicotine patch 21 mg Q day *Smoking cessation education. *Patient is requesting NicoDerm patches at discharge to assist with smoking cessation. (6) Edema leg: PLAN: *elevate extremity when not ambulating *LLE doppler to RO DVT resulted as negative (7) Insomnia: QUALIFIERS: Insomnia type: unspecified Qualified Code(s): G47.00 - Insomnia, unspecified PLAN: *increase Melatonin to 10mg PO every HS *Ambien 5mg PO PRN HS sleep Charges/Coding Visit Charges Inpatient E&M: 27957 Subs Hosp L2 Documented by User: Dr. Avril Zapata, DO 02/02/25 09:13 Subjective Subjective 01/29/25: I met with Vincent in his room. He is sitting in a bedside recliner. He has been working well with PT/OT. We had an extensive discussion about preventative care and the importance of establishing with a primary care and going to appointments for yearly checkups. [facility], SW is working on establishment. He states that his pain has been much better since his HS dose of Oxy has been increased to 10mg. He did state that he falls asleep ok but has trouble staying asleep. I did increase his melatonin to 10mg. We also discussed some deep breathing exercises. He also has Ambien available to him, if needed. Lastly, I did assess the sweling in his LLE. He does have ANGELITA hose in place. Although he continues to have swelling at the knee, it has improved since last assessment. All questions were answered. Plan for pt to dc on Sunday, I agree with the findings of the SACHIN and with the plan for care. Objective Data Lab / Micro Data 01/31/25 06:42 01/31/25 06:42 Assessment & Plan Assessment/Plan (1) Physical debility: (2) Closed intertrochanteric fracture of left femur: QUALIFIERS: Encounter type: subsequent encounter Fracture healing: with routine healing (3) Fall from slip, trip, or stumble: QUALIFIERS: Encounter type: subsequent encounter Qualified Code(s): W01.0XXD - Fall on same level from slipping, tripping and stumbling without subsequent striking against object, subsequent encounter (4) Alcohol dependence: QUALIFIERS: Complication of substance-induced condition: u ncomplicated (5) Tobacco use: (6) Edema leg: (7) Insomnia: QUALIFIERS: Insomnia type: unspecified Qualified Code(s): G47.00 - Insomnia, unspecified
--- NOTE | 2025-01-29 10:56 | CASEMGMT ---
Addendum entered by Doris Garcia 01/29/25 12:33: SW spoke with pt and provided paperwork. Pt prefers to have HHC and will do HEPs prior to establishment. Pt denied DME needs. Plan: DC home 02/01, pt will see new PCP and PCP will order HHC PT/OT Original Note: Social Work SW followed up with patient on PCP selection and HHC vs OP therapy. Pt stated he did not make any decisions. SW stated referrals and appts will need to be made prior to DC and tomorrow is Sunday. - [employer] spoke with pt and he requested to get re-established with [facility] for PCP. - SW phoned [facility]. [facility] stated [facility] and needs to complete more forms to be active and get established with a PCP. [facility] is faxing this worker those forms. SW to provide to pt. DANIA updated [employer]. Doris Garcia SUPERVISOR POULTRY [employer]ARM SOLAR SALES ENERGY ADVISOR
[2025-01-29 17:12] VITALS: BP 130/69; PULSE 98; RESP 16; TEMP 37.1; O2SAT 97
[2025-01-29 21:00] VITALS: PULSE 98; RESP 16; O2SAT 99
[2025-01-29] MEDS: MELATONIN 10 MG TABLET PO (21:15)
[2025-01-30 06:00] VITALS: BP 104/67; PULSE 79; RESP 16; TEMP 36.3; O2SAT 95
[2025-01-30] MEDS: Senna/Docusate Sodium 1 Tablet 2 TABLET PO (07:59)
[2025-01-30] MEDS: Nicotine (PBKC) 21 MG Patch TD (08:00)
[2025-01-30] MEDS: APIXABAN 2.5 MG TABLET (WCH) PO ×2 (08:00→21:28)
--- NOTE | 2025-01-30 11:24 | CASEMGMT ---
Social Work SW spoke with pt and pt completed [facility] paperwork. SW faxed paperwork to [facility] and [facility] will contact pt to schedule for PCP appt once the paperwork is processed. Then once pt sees PCP, the PCP can order HHC or OP therapy. Pt expressed understanding. Doris Garcia SPEEDOMETER INSPECTOR QUARTER TRIMMER
--- NOTE | 2025-01-30 15:21 | DCINST_ITS ---
Discharge Instructions DC O2, CPAP, BIPAP needs Home O2 Discharge instructions: No Dressing / Incision Discharge Activity: May Not Drive (No driving until Okay with orthopedics.), May Shower (No tub baths or soaking the incision) and Use Walker Weight Bearing Status: Weight bearing as tolerated Keep extremity elevated above heart level: Left Leg Dressing / Incision Call your doctor if your incision/area has: Continuous Slow Oozing, Sudden Increased Bleeding, Increased Pain/ Swelling, Increased Redness, Foul Smelling Discharge and Swelling at the incision site Call your doctor if you observe: Fever of 101 or Higher, Numbness or Tingling, Shortness of breath, Dizziness, Fainting spells, Chest pain, Increased palpitations (irregular heartbeat), Calf discomfort, Uncontrolled pain and - (STROKE symptoms: facial droop, slurred speech, inability to get words out, weakness on 1 side of the body and not the other, numbness on 1 side of the body and not the other, inability to maintain your balance sitting or standing, vertigo. ) Suture Line Care: Avoid Pulling/Pushing, Avoid Pinching/Bending and - (OK to leave the incision open to air.....if there is any drainage you can apply a dry dressing. ) Cleanse incision/area with: Soap & Water Follow Up Care Please Follow Up With: Artur Espinoza MD When: An appt has been made for you and is listed later in this document. you should also get established with a primary care doctor for routine medical care. Test Results: Test results from this visit will be discussed in further detail at your follow- up appointment, if applicable. Pending Tests Upon Discharge: none Discharge Plan Admission Admit Date/Time: 01/22/25 14:48 Primary Reason for Your Visit: Debility secondary to traumatic hip fracture. Attending Provider: Avril Zapata Primary Care Provider: [facility],[place] Instructions Patient Instructions: Caring for Your Incision Additional Instructions / Restrictions: 1. For about 4 weeks after an operation to repair a hip fracture you are at in creased risk of blood clots in the legs. since you have had a blood clot after a surgery in the past you know all about this. You are taking a medication called Eliquis (he also called apixaban) twice a day. You can stop this medication after the last dose on 10/9/25. 2. Keep a close eye on the incision and check it once a day. If there is increasing redness, increased swelling, increased pain, discharge from the wound (galilea if it is stinky) call Dr. Espinoza's office for advice. These things are signs of infection. Keep the incision clean and dry. Wash with soap and water daily and pat dry. 3. I think it would be a good idea to follow up at the [place] to get established with a primary care physician. There are some things after a certain age (you are past that age) that need to be done to help PREVENT serious health problems. These things include but, are not limited to chest Xray in smokers, PSA (prostate specific antigen) to screen for prostate cancer, colonoscopy (usually the first recommended one is at age 50), vaccines to prevent respiratory infections in people who likely have some lung disease due to smoking, screening for high blood pressure (it tends to increase with age and if you have high blood pressure it can lead to strokes, heart disease, kidney disease, etc. Also, if you get sick and need to see a doctor you will have someone who knows you to follow up with....instead of an urgicare which in my opinion are usually worthless 4. I am giving you a prescription for a nicotine patch. Generally the dose is tapered off over a period of 2-3 months. You start with a 21 mg patch for 1 month then 14 mg for 2 weeks and then 7 mg for a week and then stop the patch. Smoking is a big risk factor for strokes, heart attacks, lung cancer (and other cancers....like kidney cancer), Emphysema/COPD, macular degeneration, vascular disease in the legs that decreases blood flow and can lead to gangrene. Good fo you for quitting. 5. It has been nice working with you. Please start taking better care of yourself. Socialization is important.......there is more to life than sitting home and drinking beer all day because you are bored........try something new. You need to cut down on the amount of beer you drink.......the sodium in the blood was low at admission to the hospital. The sodium was 127 and normal is 135-145. This was because of the beer. Low sodium causes confusion, drowsiness and even seizures if it gets to be Less than 125. Cutting back would be good. 6. We have been giving you 5 mg of Oxycodone in the morning before therapy and 10 mg at bedtime. All pain is worse at the end of the day/bedtime and you were not sleeping at night due to uncontrolled pain. I would stick with this regimen at least for the first few days at home. We have also been giving you Tylenol every 8 hours. Tylenol is actually a decent pain reliever and when taken regularly it cuts down on the need to use narcotics for pain control. 7. If you have any questions after you leave rehab please do not hesitate to call me. OFFICE: [phone] CELL: [phone] NURSES [facility] REHAB: [phone] Discharge Orders/Prescriptions Prescriptions: New oxycodone 5 mg Tablet 5 - 10 mg PO Q4H PRN PRN (Reason: Pain Score 4-10) 7 Days Qty: 35 0RF Rx Instructions: Take 5 mg during the day and 10 mg at bedtime as needed for pain. Eliquis 5 mg Tablet 2.5 mg PO Q12 Qty: 37 0RF Rx Instructions: Take this twice a day until it is all gone and then stop. This prevents blood clots. nicotine [Nicoderm CQ] 14 mg/24 hr patch 24 hour 1 patch transdermal DAILY Qty: 14 0RF Rx Instructions: start this when you finish the 21 mg patch nicotine [Nicoderm CQ] 7 mg/24 hr patch 24 hour 1 patch transdermal Q24H Qty: 14 0RF Rx Instructions: Start this when you finish the 14 mg patch. Continued nicotine 21 mg/24 hr Patch 24 Hour 21 mg transdermal DAILY Qty: 28 0RF Rx Instructions: apply in the AM and remove at bedtime. When done with 21 mg you will start the 14 mg patch. Changed acetaminophen 500 mg Tablet 1,000 mg PO Q8 PRN (Reason: pain/fever) Qty: 1 0RF Discontinued sennosides-docusate sodium [Stimulant Laxative Plus] 8.6-50 mg Tablet 2 tab PO BID Qty: 0 0RF erythromycin 5 mg/gram (0.5 %) Ointment 1 applic LEFT EYE TID Qty: 0 0RF folic acid 1 mg Tablet 1 mg PO BREAKFAST Qty: 0 0RF oxycodone 5 mg Tablet 5 mg PO Q4H PRN PRN (Reason: Pain Score 4-10) Qty: 0 0RF Eliquis 5 mg Tablet 2.5 mg PO Q12 Qty: 0 0RF Rx Instructions: For 30 days post op then stop melatonin 10 mg Tablet,Disintegrating 5 mg PO QHS PRN PRN (Reason: Insomnia) Referrals / Follow Up: Artur Espinoza MD [Med Staff - Active Staff, Orthopedics] - 02/03/25 2:30 pm [facility],[place] [Primary Care Provider, None] Disposition Disposition (needs filled in before D/C Order can be placed): Home, Self Care
--- NOTE | 2025-01-30 16:16 | DS.PCM_ITS ---
Providers Date of Admission: 01/22/25 Date of Discharge: 02/01/25 Primary Care Physician: [facility] Reason For Visit: L HIP FRACTURE Diagnosis Discharge Diagnosis (1) Physical debility: Status: Acute Code(s): R53.81 - Other malaise (2) Closed intertrochanteric fracture of left femur: Status: Acute Code(s): S72.142A - Displaced intertrochanteric fracture of left femur, initial encounter for closed fracture Qualifiers: Encounter type: subsequent encounter Fracture healing: with routine healing (3) History of open reduction and internal fixation (ORIF) procedure: Status: Acute Code(s): Z98.890 - Other specified postprocedural states (4) Acute blood loss anemia: Status: Acute Code(s): D62 - Acute posthemorrhagic anemia (5) Hyponatremia: Status: Resolved Code(s): E87.1 - Hypo-osmolality and hyponatremia Plan: Present at admission to the hospital and more likely than not secondary to beer Poto finesse from excessive alcohol intake. Admission sodium was 127. (6) Tobacco use: Status: Chronic Code(s): Z72.0 - Tobacco use Plan: *Nicotine patch 21 mg Q day *Smoking cessation education. *Patient is requesting NicoDerm patches at discharge to assist with smoking cessation. Given RX for #28 21 mg patches, #14 14 mg patches and #7 7 mg patches. (7) Edema leg: Status: Acute Code(s): R60.0 - Localized edema Plan: Left leg only. LLE doppler negative for DVT. Edema due to venous insufficiency/recent fx and ORIF of the left hip. Much improved with ANGELITA hose and elevation. (8) Insomnia: Status: Resolved Code(s): G47.00 - Insomnia, unspecified Qualifiers: Insomnia type: unspecified Qualified Code(s): G47.00 - Insomnia, unspecified Plan: Insomnia was secondary to uncontrolled pain. Oxycodone was increased to 10 mg at at bedtime and the insomnia resolved. (9) Alcohol use disorder: Status: Chronic Code(s): F10.90 - Alcohol use, unspecified, uncomplicated (10) Elevated TSH: Status: Acute Code(s): R79.89 - Other specified abnormal findings of blood chemistry (11) History of venous thromboembolism: Status: Chronic Code(s): Z86.718 - Personal history of other venous thrombosis and embolism Plan: This occurred after surgery to reattach the fingers of his left hand when they were cut off by a trash compactor. Plan 1. DC home on 02/01/25 2. [facility] to contact the pt to schedule an appt and after he is seen then the PCP can order OP therapy or HHC. 3. Has an appt to follow up with Dr. Espinoza 4. Continue Eliquis 2.5 mg BID and DC after last dose on 02/19/25. 5. T4 ordered for 01/31/21.......will need to follow up with PCP for the increased TSH. Medications at Discharge Home Medications acetaminophen 500 mg tablet 1,000 mg (2 x 500 mg) PO Q8 PRN pain/fever #1 TAB 01/30/25 apixaban 2.5 mg tablet (Eliquis) 2.5 mg PO BID #37 tabs 01/30/25 nicotine 14 mg/24 hr daily transdermal patch (Nicoderm CQ) 1 patch transdermal DAILY #14 ea 01/30/25 nicotine 21 mg/24 hr daily transdermal patch (Nicoderm CQ) 1 patch transdermal DAILY #28 ea 01/30/25 nicotine 7 mg/24 hr daily transdermal patch (Nicoderm CQ) 1 patch transdermal Q24H #14 ea 01/30/25 oxycodone 5 mg tablet 5 mg PO Q4H PRN PRN Pain Score 4-10 7 days #45 tabs 01/30/25 Physical Exam Const alert, oriented x3 and no apparent distress Constitutional Narrative: Sitting in the recliner at the bedside. Appropriate. Good eye contact. Calm and engaged. General Appearance: cooperative Orientation / Consciousness: awake and other HEENT normocephalic and head/scalp atraumatic Eyes EOMs intact bilaterally, conjunctivae normal and no scleral icterus Eyes Narrative: L eye nerve damage with twitch/blepharospasm. The twitching increases with anxiety. This is due to a remote injury to the eye and botox vs surgery has been discussed with him in the past. No discharge from the eyes. Neck full ROM, supple and No nodes General: trachea midline Lymph Lymphatic: no lymphadenopathy noted Chest inspection of chest normal Chest: symmetrical chest wall rise Resp normal respiratory effort and clear to auscultation bilaterally Effort and Inspection: able to speak in complete sentences Auscultation: diminished lung sounds bilateral (mild galilea in the bases. ) throughout Cardio regular rate, regular rhythm, no murmurs, no rub and no gallops Cardio Narrative: No ectopy Heart Sounds: S1 normal and S2 normal Peripheral Pulses: pulses 2+ throughout GI normal to inspection, nondistended, normoactive bowel sounds, soft to palpation and non-tender GI Narrative: Having regular BM's. Auscultation: normoactive bowel sounds Palpation: soft no CVA tenderness Back/Spine no CVA tenderness Extremity Extremity Narrative: LE edema is much improved with ANGELITA hose and elevation. General Extremity: amputation and other findings Other Details: finger, previous Right Lower Extremity: hip joint inspection (Healing surgical incision to the left hip. No erythema or purulent drainage. Well-approximated.) Skin Skin Narrative: The left hip incision is intact with no dehiscence. There is no isael-incisional erythema. There is a small amount of serous drainage with no purulent drainage and no odor. No significant pain with palpation around the incision and the edema is much improved. General Skin Exam: no breakdown Rashes: no rashes Neuro no focal motor deficits and no sensory deficits noted Sensorium / Orientation: awake, alert, oriented to person, oriented to place and oriented to time Speech: speech normal Psych thought process normal, cooperative and affect normal Attitude: calm and engaged Activity / Motor Behavior: appropriate eye contact Speech: normal speech Memory / Cognition: other Weight / BMI Weight Weight: 166 lb 14.239 oz Body Mass Index (BMI) 23.3 ABG / Lab / Microbiology Data 01/31/25 06:42 01/31/25 06:42 Indicators for Scoring Admitted with or Primary Diagnosis of CVA/Stroke: No Hx of CVA/Stroke: No NIHSS NIHSS 1a. Level of Consciousness: 0 - Alert; keenly responsive 1b. LOC Questions: 0 - Answers BOTH questions correctly 1c. LOC Commands: 0 - Performs BOTH tasks correctly 2. Best Gaze: 0 - Normal 3. Visual: 0 - No visual loss 4. Facial Palsy: 0 - Normal symmetrical movements 5a. Left Arm: 0 - No drift; arm holds 90 (or 45) degrees for full 10 seconds 5b. Right Arm: 0 - No drift; arm holds 90 (or 45) degrees for full 10 seconds 6a. Left Le - No drift; leg holds 30-degree position for full 5 seconds 6b. Right Le - No drift; leg holds 30-degree position for full 5 seconds 7. Limb Ataxia: 0 - Absent 8. Sensory: 0 - Normal; no sensory loss 9. Best Language: 0 - No aphasia; normal 10. Dysarthria: 0 - Normal 11. Extinction and Inattention: 0 - No abnormality Total: 0 (Not admitted with stroke or brain trauma. NIHSS is not applicable to this admission. ) Stroke Questions Stroke Team Activated: No D/C Instructions Diet Diet Order/Speech Therapy: INPATIENT Hospital Diet / Speech Therapy Order(s) 01/22/25 15:18 Diet: Regular - General Food consistency:: Regular Liquid Consistency:: Regular/Thin Diet Comments: send one honey packet with each meal Discharge order: Continue INPATIENT Hospital Diet / Speech Therapy Orders: Yes Weight Bearing Status: Weight bearing as tolerated Keep extremity elevated above heart level: Left Leg Call your doctor if your incision/area has: Continuous Slow Oozing, Sudden Increased Bleeding, Increased Pain/ Swelling, Increased Redness, Foul Smelling Discharge and Swelling at the incision site Call your doctor if you observe: Fever of 101 or Higher, Numbness or Tingling, Shortness of breath, Dizziness, Fainting spells, Chest pain, Increased palpitations (irregular heartbeat), Calf discomfort, Uncontrolled pain and - (STROKE symptoms: facial droop, slurred speech, inability to get words out, weakness on 1 side of the body and not the other, numbness on 1 side of the body and not the other, inability to maintain your balance sitting or standing, vertigo. ) Suture Line Care: Avoid Pulling/Pushing, Avoid Pinching/Bending and - (OK to leave the incision open to air.....if there is any drainage you can apply a dry dressing. ) Cleanse incision/area with: Soap & Water DC O2, CPAP, BIPAP Needs Home O2 Discharge instructions: No Pending Tests Upon Discharge: none Please Follow Up With: Artur Espinoza MD When: An appt has been made for you and is listed later in this document. you should also get established with a primary care doctor for routine medical care. Meaningful Use Info Meaningful Use Meaningful Use Diagnoses (Choose all that apply): None applicable Ischemic Stroke Statin Dosing Therapy Reference: STATIN DOSE THERAPY REFERENCE: * Patients > 75 years receive moderate or high dose statin therapy. * Patients 75 years or YOUNGER should receive HIGH intensity statin dose unless contraindicated. You will be required to document reason for non-treatment if statin daily dose does not meet guidelines. HIGH DOSE STATIN THERAPY DAILY Atorvastatin > than or = to 40 mg Rosuvastatin > than or = to 20 mg Amlodipine + Atorvastatin > than or = to 2.5/40 mg Ezetimibe + Simvastatin 10/80 mg Simvastatin 80mg Discharge Plan Admission Admit Date/Time: 01/22/25 14:48 Primary Reason for Your Visit: Debility secondary to traumatic hip fracture. Attending Provider: Avril Zapata [facility] Provider[facility] Instructions Patient Instructions: Caring for Your Incision Additional Instructions / Restrictions: 1. For about 4 weeks after an operation to repair a hip fracture you are at increased risk of blood clots in the legs. since you have had a blood clot after a surgery in the past you know all about this. You are taking a medication called Eliquis (he also called apixaban) twice a day. You can stop this medication after the last dose on 02/19/25. 2. Keep a close eye on the incision and check it once a day. If there is increasing redness, increased swelling, increased pain, discharge from the wound (galilea if it is stinky) call Dr. Espinoza's office for advice. These things are signs of infection. Keep the incision clean and dry. Wash with soap and water daily and pat dry. 3. I think it would be a good idea to follow up at the [facility] to get established with a primary care physician. There are some things after a certain age (you are past that age) that need to be done to help PREVENT serious health problems. These things include but, are not limited to chest Xray in smokers, PSA (prostate specific antigen) to screen for prostate cancer, colonoscopy (usually the first recommended one is at age 50), vaccines to prevent respiratory infections in people who likely have some lung disease due to smoking, screening for high blood pressure (it tends to increase with age and if you have high blood pressure it can lead to strokes, heart disease, kidney disease, etc. Also, if you get sick and need to see a doctor you will have someone who knows you to follow up with....instead of an urgicare which in my opinion are usually worthless 4. I am giving you a prescription for a nicotine patch. Generally the dose is tapered off over a period of 2-3 months. You start with a 21 mg patch for 1 month then 14 mg for 2 weeks and then 7 mg for a week and then stop the patch. Smoking is a big risk factor for strokes, heart attacks, lung cancer (and other cancers....like kidney cancer), Emphysema/COPD, macular degeneration, vascular disease in the legs that decreases blood flow and can lead to gangrene. Good fo you for quitting. 5. It has been nice working with you. Please start taking better care of yourself. Socialization is important.......there is more to life than sitting home and drinking beer all day because you are bored........try something new. You need to cut down on the amount of beer you drink.......the sodium in the blood was low at admission to the hospital. The sodium was 127 and normal is 135-145. This was because of the beer. Low sodium causes confusion, drowsiness and even seizures if it gets to be Less than 125. Cutting back would be good. 6. We have been giving you 5 mg of Oxycodone in the morning before therapy and 10 mg at bedtime. All pain is worse at the end of the day/bedtime and you were not sleeping at night due to uncontrolled pain. I would stick with this regimen at least for the first few days at home. We have also been giving you Tylenol every 8 hours. Tylenol is actually a decent pain reliever and when taken regularly it cuts down on the need to use narcotics for pain control. 7. If you have any questions after you leave rehab please do not hesitate to call me. OFFICE: [phone] CELL: [phone] NURSES STATION ON REHAB: [phone] Discharge Orders/Prescriptions Prescriptions: New nicotine [Nicoderm CQ] 14 mg/24 hr patch 24 hour 1 patch transdermal DAILY Qty: 14 0RF Rx Instructions: start this when you finish the 21 mg patch nicotine [Nicoderm CQ] 7 mg/24 hr patch 24 hour 1 patch transdermal Q24H Qty: 14 0RF Rx Instructions: Start this when you finish the 14 mg patch. oxycodone 5 mg Tablet 5 mg PO Q4H PRN PRN (Reason: Pain Score 4-10) 7 Days Qty: 45 0RF nicotine [Nicoderm CQ] 21 mg/24 hr patch 24 hour 1 patch transdermal DAILY Qty: 28 0RF Eliquis 2.5 mg tablet 2.5 mg PO BID Qty: 37 0RF Rx Instructions: 1 tablet p.o. twice daily until gone Changed acetaminophen 500 mg Tablet 1,000 mg PO Q8 PRN (Reason: pain/fever) Qty: 1 0RF Discontinued sennosides-docusate sodium [Stimulant Laxative Plus] 8.6-50 mg Tablet 2 tab PO BID Qty: 0 0RF erythromycin 5 mg/gram (0.5 %) Ointment 1 applic LEFT EYE TID Qty: 0 0RF nicotine 21 mg/24 hr Patch 24 Hour 21 mg transdermal DAILY Qty: 0 0RF folic acid 1 mg Tablet 1 mg PO BREAKFAST Qty: 0 0RF oxycodone 5 mg Tablet 5 mg PO Q4H PRN PRN (Reason: Pain Score 4-10) Qty: 0 0RF Eliquis 5 mg Tablet 2.5 mg PO Q12 Qty: 0 0RF Rx Instructions: For 30 days post op then stop melatonin 10 mg Tablet,Disintegrating 5 mg PO QHS PRN PRN (Reason: Insomnia) Referrals / Follow Up: Artur Espinoza MD [Med Staff - Active Staff, Orthopedics] - 02/03/25 2:30 pm [facility] [Primary Care Provider, None] Disposition Disposition (needs filled in before D/C Order can be placed): Home, Self Care Charges/Coding Visit Charges Inpatient E&M: 16689 Disch Hosp >30min Hospital Course RU Operations - (Open reduction internal fixation of left hip fracture by Dr. Artur Espinoza on 01/19/2025.) Procedures None Summary of Care Provided Minutes Spent on Discharge: 45 Hospital Course: Vincent is a 69 YO male with a hx of VTE after a remote surgery, tobacco dependence and alcohol use/abuse disorder (beer only). He presented to the ED at [facility] on 01/18/2025 after a fall. X-rays revealed a intertrochanteric left hip fracture. Lab showed a low sodium at 127......more likely than not due to beer potomania. The remainder of the lab was unremarkable. Because of the low sodium a TSH was checked and was mildly increased at 5.6. A T4 and antithyroid antibodies were ordered for 01/31/25 but, the results are not available at the time of this dictation. He can follow up with his PCP for the results of this test and treatment if necessary. He was admitted to the hospitalist service and started on a CIWA protocol for possible alcohol withdrawal. He had no withdrawal symptoms. He was seen by Dr. Artur Espinoza from orthopedic surgery and scheduled for ORIF on 01/19/2025. There were no significant post op complications other than acute blood loss anemia (mild) and he was transferred to the acute inpt rehab unit at [facility] on 01/22/2025 for 3 hours of therapy daily to restore function/independence at or near his level prior to the hip fracture. While on rehab he was on a nicotine patch which helped with cravings and he was given smoking cessation counseling. He requested a nicotine patch at discharge and he was given prescriptions for tapering doses of the patch from 21 mg to 7 mg over the next 2 months. Hemoglobin remained stable while on rehab and his sodium was within normal limits. He had some insomnia that did not improve with Melatonin. The insomnia was likely due to uncontrolled pain because when I scheduled 10 mg of Oxycodone at he was able to sleep well. He usually only took one 5 mg Oxycodone during the day and that was in the AM prior to therapy. While on rehab he had pitting edema of the LLE to the groin. Bedause of his hx of VTE following a surgery in the past a venous US was obtained and it was negative for DVT. He had not been wearing ANGELITA hose and these were ordered along with elevation when sitting. with compression and elevation the edema dramatically improved. He had some serous drainage from the incision when the edema was bad but, at the time of DC there is only a small amount of serous drainage on the dressing. There is no isael-incisional erythema and no increased warmth to touch around the area of the incision. Most of the swelling is gone. There is no purulent discharge. At the time of discharge he is able to ascend/descend 8 standard steps with 2 handrails at standby assist. He is able to do 1 curb step at SBA/CGA using a front wheeled walker. He has ambulated up to 200 feet with a front wheel walker at mod I on various surfaces. He is mod I for transfers from the bed to the chair and the chair to standing. He has modified independent with grooming, bathing, upper body dressing, lower body dressing, toilet transfer and toileting. He is independent with eating and supervision/set up for tub/shower transfer. Vincent was discharged home on 02/01/25. Vincent does not have a PCP. He has no regular physician follow up. We discussed why preventative health care and regular follow up with a physician after a certain age are important. He is a and [facility] [place] Espinoza will need to prescribe ongoing therapy for him. His PCP will need to follow up on the thyroid testing. CXR at admission showed the heart to be of normal size and the lungs to be clear. Lungs were clear to auscultation with fair air exchange. Room air pulse ox was in the high 90s. Blood pressure is within normal limits.
[2025-01-30 18:00] VITALS: BP 103/54; PULSE 92; RESP 15; TEMP 37.2; O2SAT 99
[2025-01-30] MEDS: MELATONIN 10 MG TABLET PO (21:28)
[2025-01-31 06:00] VITALS: BP 106/62; PULSE 89; RESP 18; TEMP 36.8; O2SAT 97
[2025-01-31 06:58] LABS: Hematocrit 30.3 % (40-54); Hemoglobin 9.9 g/dL (13.0-16.5); Mean Corp Hgb Conc 32.7 g/dL (32-36); Mean Corpuscular Volume 108.6 fL (80-94); Mean Platelet Vol. 7.8 fl (6.2-12.0); Platelet Count 507 K/mm3 (150-450); RBC Distribution Width CV 13.6 % (11.6-14.6); RBC Distribution Width SD 54.4 fl (35.1-43.9); Red Blood Count 2.79 M/mm3 (4.6-6.2); White Blood Count 6.1 K/mm3 (4.4-11.0)
[2025-01-31 07:35] LABS: Anion Gap 9 (5-15); BUN 19 mg/dL (4-19); BUN/Creat Ratio 26.4 RATIO (10-20); Calcium,Total 8.7 mg/dL (7.6-11.0); Carbon Dioxide 22.6 mmol/L (21.0-32.0); Chloride 106 mmol/L (98-108); Estimated Creatinine Clearance 94.13 ml/min (50-250); Glucose 84 mg/dL (70-99); Potassium 4.2 mmol/L (3.3-5.1)
[2025-01-31] MEDS: Nicotine (PBKC) 21 MG Patch TD (07:43)
[2025-01-31] MEDS: APIXABAN 2.5 MG TABLET (WCH) PO ×2 (09:09→20:57)
[2025-01-31] MEDS: Senna/Docusate Sodium 1 Tablet 2 TABLET PO (13:30)
[2025-01-31 18:00] VITALS: BP 114/70; PULSE 79; RESP 18; TEMP 36.7; O2SAT 98
[2025-01-31] MEDS: MELATONIN 10 MG TABLET PO (20:57)
[2025-02-01 06:00] VITALS: BP 125/73; PULSE 78; RESP 17; TEMP 36.7; O2SAT 98
[2025-02-01] MEDS: Nicotine (PBKC) 21 MG Patch TD (08:41)
[2025-02-01] MEDS: APIXABAN 2.5 MG TABLET (WCH) PO (08:41)
== END 2025-02-01 14:05 | disposition home or self-care (01) | DRG 560 ==
PROVIDERS: Admitting Provider Internal Medicine; Visit Provider Internal Medicine
DX: S72.142D Displaced intertrochanteric fracture of left femur, subsequent encounter for closed fracture with routine healing (principal); D62 Acute posthemorrhagic anemia; F10.20 Alcohol dependence, uncomplicated; F17.200 Nicotine dependence, unspecified, uncomplicated; I87.2 Venous insufficiency (chronic) (peripheral); W01.0XXD Fall on same level from slipping, tripping and stumbling without subsequent striking against object, subsequent encounter; G24.5 Blepharospasm; S05.92XS Unspecified injury of left eye and orbit, sequela; G47.00 Insomnia, unspecified; R94.6 Abnormal results of thyroid function studies; S05.02XD Injury of conjunctiva and corneal abrasion without foreign body, left eye, subsequent encounter; W44.8 Other foreign body entering into or through a natural orifice
CPT/HCPCS: 80048; 80053; 83735; 84100; 84439; 85025; 85027; 86376; 86800; 93971; 97110; 97116; 97162; 97167; 97530; 97535; 97802